=== PATIENT | female | born 1955 | race African-American/Black ===

== ENCOUNTER 2017-03-12 14:13 | Inpatient (IN) | payer MEDICARE, OTHER ==
[~2017-03-12] VITALS: Ht 167.6 cm; Wt 113.4 kg
[~2017-03-12 14:13] MED LIST: AMBIEN10 MG PO; ASPIRIN81 M1 PO; DULCOLAX5 MG PO; LOTREL 10-20 M1 EACH PO; METFORMIN HCL1000 MG PO; ROBAXIN-750750 MG PO; TYLENOL #31 TAB PO; VICODIN ES 7.51 EACH PO
[2017-03-12] MEDS ORDERED: HYDROmorphone 1mg/ml Carpuject IVP ONE (14:30)
[2017-03-12 14:58] LABS: APPEARANCE,URINE SLIGHTLY CLOUDY; BASOPHILS % (AUTO) 0.4 % (0.0-2.0); EOSINOPHILS % (AUTO) 1.7 % (0.0-3.0); KETONES,URINE NEGATIVE (NEGATIVE); LEUKOCYTE ESTERASE ,URINE 1+ (NEGATIVE); LYMPHOCYTES % (AUTO) 22.2 % (20.0-45.0); MEAN CORPUSCULAR HGB CONC 34.2 G/DL (32.0-36.0); MEAN CORPUSCULAR VOLUME 91 FL (80-99); MEAN PLATELET VOLUME 6.2 FL (6.5-10.1); MONOCYTES % (AUTO) 6.4 % (1.0-10.0); NEUTROPHILS % (AUTO) 69.3 % (45.0-75.0); NITRITE,URINE NEGATIVE (NEGATIVE); PH,URINE 5 (4.5-8.0); PLATELET COUNT 261 K/UL (150-450); PROTEIN,URINE 1+ (NEGATIVE); UROBILINOGEN,URINE NORMAL MG/DL (0.0-1.0); WHITE BLOOD COUNT 8.3 K/UL (4.8-10.8)
[2017-03-12 15:08] LABS: BACTERIA,URINE FEW /HPF; SQUAMOUS EPITHELIAL CELL,UR MODERATE /LPF (NONE/OCC)
--- NOTE | 2017-03-12 15:13 | Emergency Room Report ---
History of Present Illness General Chief Complaint: Abdominal Pain Source: Patient Present Illness HPI 61-year-old female presents to ED for evaluation. Patient brought in by ems c/ o abdominal pain times one week. She was seen by Dr. Maria's office and referred to ED for evaluation. Patient states pain is a 10 out of 10, sharp, right lower quadrant, nonradiating. Patient states she has history of multiple bowel obstructions and multiple surgeries. Denies fevers or chills. Denies chest pain. No other aggravating relieving factors. Denies any other associated symptom Allergies: Coded Allergies: KETOROLAC TROMETHAMINE (Unverified Allergy, Severe, Hives, 03/29/12) AMOXICILLIN (Verified Allergy, Unknown, 12/10/10) KETOROLAC (Verified Allergy, Unknown, 12/10/10) PENICILLINS (Verified Allergy, Unknown, 03/12/17) TRAMADOL (Verified Allergy, Unknown, 12/10/10) Patient History Past Medical History: HTN Past Surgical History: none Pertinent Family History: none Social History: Denies: smoking, alcohol use, drug use Now: No Immunizations: UTD Reviewed Nursing Documentation: PMH: Agreed, PSxH: Agreed Nursing Documentation-PMH Hx Cardiac Problems: Yes Hx Hypertension: Yes Hx Diabetes: Yes Hx Cancer: No Hx Gastrointestinal Problems: Yes Hx Neurological Problems: No Review of Systems All Other Systems: negative except mentioned in HPI Physical Exam Vital Signs Date Time Temp Pulse Resp B/P (MAP) Pulse Ox O2 Delivery O2 Flow Rate FiO2 03/12/17 14:10 98.1 84 16 140/74 98 Room Air Sp02 EP Interpretation: reviewed, normal General Appearance: alert, GCS 15, non-toxic, mild distress, obese Head: normocephalic, atraumatic Eyes: bilateral eye normal inspection, bilateral eye PERRL ENT: hearing grossly normal, normal pharynx, no angioedema, normal voice Neck: full range of motion, supple/symm/no masses Respiratory: chest non-tender, lungs clear, normal breath sounds, speaking full sentences Cardiovascular #1: regular rate, rhythm, no edema Cardiovascular #2: 2+ carotid (R), 2+ carotid (L), 2+ radial (R), 2+ radial (L) , 2+ dorsalis pedis (R), 2+ dorsalis pedis (L) Gastrointestinal: normal bowel sounds, soft, non-distended, no guarding, no rebound, tenderness - RLQ Rectal: deferred Genitourinary: normal inspection, no CVA tenderness Musculoskeletal: back normal, gait/station normal, normal range of motion, non- tender Neurologic: alert, oriented x3, responsive, motor strength/tone normal, sensory intact, speech normal Psychiatric: judgement/insight normal, memory normal, mood/affect normal, no suicidal/homicidal ideation Reflexes: 3+ bicep (R), 3+ bicep (L), 3+ tricep (R), 3+ tricep (L), 3+ knee (R) , 3+ knee (L) Skin: normal color, no rash, warm/dry, well hydrated Lymphatic: no adenopathy Medical Decision Making Diagnostic Impression: Primary Impression: Abdominal pain Qualified Codes: R10.9 - Unspecified abdominal pain Additional Impression: Ileus ER Course Hospital Course 61-year-old female presents to ED with abdominal pain. h/o SBO Differential diagnoses include: BPH, cystitis, pyelonephritis, kidney stone Clinical course Patient placed on stretcher. radiation monitor. After initial history and physical I ordered labs, IV fluids, UA, pain medication and CT scan Labs - no leukocytosis, Hb/Hct stable, electrolytes ok CT abdomen and pelvis - postsurgical changes, ileus patient continues to have pain. Case discussed with Dr. Torres and he agreed to accept the patient to his service for further care and support I feel this is a highly complex case requiring extensive working including EKG/ Rhythm strip, Xray/CT/US, Blood/urine lab work, repeat exams while in ED, and administration of strong opiates/narcotics for pain control, admission to hospital or close patient follow up. Diagnosis - abdominal pain, ileus Patient admitted to floor in serious condition Labs Test 03/12/17 14:34 White Blood Count 8.3 K/UL (4.8-10.8) Red Blood Count 4.40 M/UL (4.20-5.40) Hemoglobin 13.6 G/DL (12.0-16.0) Hematocrit 39.9 % (37.0-47.0) Mean Corpuscular Volume 91 FL (80-99) Mean Corpuscular Hemoglobin 31.0 PG (27.0-31.0) Mean Corpuscular Hemoglobin Concent 34.2 G/DL (32.0-36.0) Red Cell Distribution Width 12.0 % (11.6-14.8) Platelet Count 261 K/UL (150-450) Mean Platelet Volume 6.2 FL (6.5-10.1) Neutrophils (%) (Auto) 69.3 % (45.0-75.0) Lymphocytes (%) (Auto) 22.2 % (20.0-45.0) Monocytes (%) (Auto) 6.4 % (1.0-10.0) Eosinophils (%) (Auto) 1.7 % (0.0-3.0) Basophils (%) (Auto) 0.4 % (0.0-2.0) Urine Color Yellow Urine Appearance Slightly cloudy Urine pH 5 (4.5-8.0) Urine Specific [place] 1.020 (1.005-1.035) Urine Protein 1+ (NEGATIVE) Urine Glucose (UA) 4+ (NEGATIVE) Urine Ketones Negative (NEGATIVE) Urine Occult Blood 3+ (NEGATIVE) Urine Nitrite Negative (NEGATIVE) Urine Bilirubin Negative (NEGATIVE) Urine Urobilinogen Normal MG/DL (0.0-1.0) Urine Leukocyte Esterase 1+ (NEGATIVE) Urine RBC 2-4 /HPF (0 - 2) Urine WBC 2-4 /HPF (0 - 2) Urine Squamous Epithelial Cells Moderate /LPF (NONE/OCC) Urine Bacteria Few /HPF (NONE) Sodium Level 132 MMOL/L (136-145) Potassium Level 4.1 MMOL/L (3.5-5.1) Chloride Level 97 MMOL/L (98-107) Carbon Dioxide Level 24 MMOL/L (21-32) Anion Gap 11 (5-15) Blood Urea Nitrogen 19 mg/dL (7-18) Creatinine 1.0 MG/DL (0.55-1.30) Estimat Glomerular Filtration Rate > 60 mL/min (>60) Glucose Level 320 MG/DL (74-106) Calcium Level 9.9 MG/DL (8.5-10.1) Total Bilirubin 0.5 MG/DL (0.2-1.0) Aspartate Amino Transf (AST/SGOT) 14 U/L (15-37) Alanine Aminotransferase (ALT/SGPT) 17 U/L (12-78) Alkaline Phosphatase 115 U/L (46-116) Total Protein 8.7 G/DL (6.4-8.2) Albumin 4.0 G/DL (3.4-5.0) Globulin 4.7 g/dL Albumin/Globulin Ratio 0.9 (1.0-2.7) Lipase 105 U/L (73-393) CT/MRI/US Diagnostic Results CT/MRI/US Diagnostic Results : Imaging Test Ordered: CT A/P Impression ileus, postsurgical changes Last Vital Signs Date Time Temp Pulse Resp B/P (MAP) Pulse Ox O2 Delivery O2 Flow Rate FiO2 03/12/17 14:10 98.1 84 16 140/74 98 Room Air Status: improved Disposition: ADMITTED INPATIENT Condition: Serious Referrals: NOT CHOSEN LISA/,REFERRING (PCP) MAGALIE SWANSON M.D. Mar 12, 2017 15:13
[2017-03-12 15:14] LABS: ALANINE AMINOTRANSFERASE 17 U/L (12-78); ALBUMIN/GLOBULIN RATIO 0.9 (1.0-2.7); ANION GAP 11 (5-15); ASPARTATE AMINO TRANSFERASE 14 U/L (15-37); CALCIUM 9.9 MG/DL (8.5-10.1); CARBON DIOXIDE 24 MMOL/L (21-32); CHLORIDE 97 MMOL/L (98-107); GLOMERULAR FILTRATION RATE > 60 mL/min (>60); LIPASE 105 U/L (73-393); POTASSIUM 4.1 MMOL/L (3.5-5.1); SODIUM 132 MMOL/L (136-145); TOTAL PROTEIN 8.7 G/DL (6.4-8.2)
--- NOTE | 2017-03-12 16:25 | Diagnostic Imaging Report ---
Indication: Abdominal pain Technique: Continuous helical transaxial imaging of the abdomen and pelvis was obtained from the lung bases to the pubic symphysis during intravenous contrast administration. Coronal 2-D reformats were also obtained. Study obtained in a Siemens sensation [address] Total Dose length Product (DLP): [address] Dose Index Volume (CTDIvol): 19.75, 0.15 mGy Comparison: 03/29/12 Findings: Mild bronchiectasis demonstrated at the lung bases with some streaky reticular densities likely scarring. Small hiatal hernia is present. The study is limited by body habitus. Cholecystectomy clips are present. This was noted previously also. Previously demonstrated stone in the right kidney is no longer visualized. There is no evidence of hydronephrosis. There is evidence of partial right colon resection. Nature of this is unknown. Mild fluid-filled and air-filled distended loops of small bowel noted in the lower abdomen. Findings are nonspecific but likely enteritis or ileus. Please correlate clinically. There is no hydronephrosis. Aorta shows some mural calcification. Spleen and liver show no gross abnormalities. There is no free fluid or free air. Uterus is noted. Urinary bladder is unremarkable. Appendix is not seen. L4-5 disc shows narrowing and vacuum phenomena. Moderate endplate sclerosis and osteophyte formation and hypertrophied facets noted. Impression: Mild enteritis/ileus may be present as discussed above. Please correlate clinically. Postsurgical changes in the area of the cecum. Please correlate clinically. This finding was noted previously also. Probable appendectomy. Status post cholecystectomy. Mild atherosclerotic disease Chronic disease at both lung bases as described above. Lumbar spondylosis as described above. Limitation due to body habitus The CT scanner at [facility] is accredited by the [employer] and the scans are performed using dose optimization techniques as appropriate to a performed exam including Automatic Exposure control.
[2017-03-12] MEDS ORDERED: SOMA350 MG PO (16:44)
[2017-03-12] MEDS ORDERED: NORVASC10 MG ORAL (16:44)
[2017-03-12 16:56] VITALS: BP 181/75
[2017-03-12] MEDS ORDERED: HYDROmorphone 1 MG in NS 55 ML IV ONE (17:00)
[2017-03-12] MEDS ORDERED: Tubing IV Secondary IV ONE (17:13)
[2017-03-12] MEDS ORDERED: NS 55 ML IV ONE (17:13)
[2017-03-12] MEDS ORDERED: Mylanta II UD 30ml ORAL PRN (18:00)
[2017-03-12] MEDS ORDERED: Metoclopramide 10mg/2ml Inj IVP PRN (18:00)
[2017-03-12] MEDS ORDERED: LORazepam Inj 2mg/ml 1ml IV PRN (18:00)
[2017-03-12] MEDS ORDERED: Morphine Sulfate 2mg/ml Inj IVP PRN (18:00)
[2017-03-12] MEDS ORDERED: Nitroglycerin Subl 0.4mg tab SL PRN (18:00)
[2017-03-12 18:47] VITALS: BP 132/76
[2017-03-12] MEDS: D5 1/2NS 1,000 ML IV SCH (19:09)
[2017-03-12 20:00] VITALS: BP 126/76
[2017-03-12] MEDS: Heparin 5000 units/ml inj SUBQ SCH (21:00)
[2017-03-12] MEDS ORDERED: Miralax 17gm pkt ORAL PRN (21:00)
[2017-03-13] VITALS: BP 144/79
[2017-03-13 04:00] VITALS: BP 132/72
[2017-03-13] MEDS: NovoLOG Insulin Flexpen SUBQ SCH ×4 (06:09→20:29)
[2017-03-13 08:15] VITALS: BP 162/87
[2017-03-13 08:46] LABS: BASOPHILS % (AUTO) 0.2 % (0.0-2.0); EOSINOPHILS % (AUTO) 1.1 % (0.0-3.0); LYMPHOCYTES % (AUTO) 11.2 % (20.0-45.0); MEAN CORPUSCULAR HEMOGLOBIN 30.8 PG (27.0-31.0); MEAN CORPUSCULAR HGB CONC 33.5 G/DL (32.0-36.0); MEAN CORPUSCULAR VOLUME 92 FL (80-99); MEAN PLATELET VOLUME 6.9 FL (6.5-10.1); MONOCYTES % (AUTO) 4.2 % (1.0-10.0); NEUTROPHILS % (AUTO) 83.4 % (45.0-75.0); PLATELET COUNT 221 K/UL (150-450); RED BLOOD COUNT 4.01 M/UL (4.20-5.40); RED CELL DISTRIBUTION WIDTH 12.3 % (11.6-14.8); WHITE BLOOD COUNT 10.3 K/UL (4.8-10.8)
[2017-03-13] MEDS: Pantoprazole Inj IV SCH ×2 (09:00→10:10)
[2017-03-13] MEDS: Heparin 5000 units/ml inj SUBQ SCH (09:00)
[2017-03-13 09:37] LABS: ALANINE AMINOTRANSFERASE 15 U/L (12-78); ALBUMIN/GLOBULIN RATIO 0.8 (1.0-2.7); AMYLASE 102 U/L (25-115); ANION GAP 9 (5-15); ASPARTATE AMINO TRANSFERASE 12 U/L (15-37); CALCIUM 8.4 MG/DL (8.5-10.1); CARBON DIOXIDE 24 MMOL/L (21-32); CHLORIDE 101 MMOL/L (98-107); CREATININE 0.9 MG/DL (0.55-1.30); GLOMERULAR FILTRATION RATE > 60 mL/min (>60); LIPASE 96 U/L (73-393); POTASSIUM 3.6 MMOL/L (3.5-5.1); SODIUM 134 MMOL/L (136-145); TOTAL PROTEIN 7.6 G/DL (6.4-8.2)
[2017-03-13] MEDS: D5 1/2NS 1,000 ML IV SCH ×2 (10:10→21:10)
[2017-03-13 11:49] VITALS: BP 151/71
--- NOTE | 2017-03-13 15:24 | History and Physical ---
History of Present Illness General Date patient seen: Mar 12, 2017 Reason for Hospitalization: Abdominal Pain Present Illness HPI 61-year-old female with hx of cholecystectomy, DM, cholecystectomy presented to ED for evaluation of abdominal pain times one week. The pain is a 10 out of 10, sharp, right lower quadrant, nonradiating. Patient states she has history of multiple bowel obstructions and multiple surgeries. Denies fevers or chills. Denies chest pain. No other aggravating relieving factors. She is admitted for intractable Nausea and vomiting. Allergies: Coded Allergies: KETOROLAC TROMETHAMINE (Unverified Allergy, Severe, Hives, 03/29/12) AMOXICILLIN (Verified Allergy, Unknown, 12/10/10) KETOROLAC (Verified Allergy, Unknown, 12/10/10) PENICILLINS (Verified Allergy, Unknown, 03/12/17) Pork (Verified Allergy, Unknown, 03/12/17) TRAMADOL (Verified Allergy, Unknown, 12/10/10) Medication History Scheduled Amlodipine Besylate (Norvasc), 10 MG ORAL DAILY, (Reported) Amlodipine-Benazepril 10-20 Mg* (Lotrel 10-20 Mg Capsule*), 1 EACH PO BID, ( Reported) Aspirin (Aspirin), 81 MG PO DAILY, (Reported) Carisoprodol* (Soma*), 350 MG PO Q6H, (Reported) Metformin Hcl (Metformin Hcl), 1,000 MG PO DAILY, (Reported) Scheduled PRN Acetaminophen/Codeine 300MG/30MG* (Tylenol #3*), 1 TAB PO Q4H PRN, (Reported) Bisacodyl (Dulcolax), 5 MG PO DAILY PRN, (Reported) Hydrocodone/Acetaminophen 7.5-750 (Vicodin Es 7.5-750), 1 TAB PO Q4HR PRN, ( Reported) Methocarbamol* (Robaxin-750*), 750 MG PO Q4HR PRN, (Reported) Zolpidem Tartrate* (Ambien*), 20 MG PO HS PRN, (Reported) Patient History Healthcare decision maker N Resuscitation status Full Code Advanced Directive on File No Past Medical/Surgical History Past Medical/Surgical History: (1) CAD (coronary artery disease) (2) Diabetes mellitus Review of Systems All Other Systems: negative except mentioned in HPI Physical Exam General Appearance: WD/WN Lines, tubes and drains: peripheral HEENT: normocephalic, atraumatic Neck: non-tender, normal alignment Respiratory/Chest: chest wall non-tender, lungs clear Breasts: no masses Cardiovascular/Chest: normal peripheral pulses Abdomen: normal bowel sounds, non tender Genitourinary/Rectal: normal genital exam Extremities: normal range of motion, non-tender Skin Exam: normal pigmentation 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 Last 24 Hour Vital Signs Date Time Temp Pulse Resp B/P (MAP) Pulse Ox O2 Delivery O2 Flow Rate FiO2 03/13/17 11:49 97.5 84 19 151/71 92 Room Air 03/13/17 08:15 97.3 82 20 162/87 96 Room Air 03/13/17 04:00 97.2 72 20 132/72 96 Room Air 03/13/17 00:00 98.2 78 21 144/79 97 Room Air 03/12/17 20:00 98.2 66 20 126/76 97 Room Air 03/12/17 18:47 98.1 83 18 132/76 98 Room Air 03/12/17 17:48 98.0 76 16 181/75 98 Room Air 03/12/17 17:45 98.1 03/12/17 17:15 181/75 03/12/17 16:56 76 16 181/75 98 Room Air Laboratory Tests Test 03/13/17 08:15 White Blood Count 10.3 K/UL (4.8-10.8) Red Blood Count 4.01 M/UL (4.20-5.40) L Hemoglobin 12.3 G/DL (12.0-16.0) Hematocrit 36.9 % (37.0-47.0) L Mean Corpuscular Volume 92 FL (80-99) Mean Corpuscular Hemoglobin 30.8 PG (27.0-31.0) Mean Corpuscular Hemoglobin Concent 33.5 G/DL (32.0-36.0) Red Cell Distribution Width 12.3 % (11.6-14.8) Platelet Count 221 K/UL (150-450) Mean Platelet Volume 6.9 FL (6.5-10.1) Neutrophils (%) (Auto) 83.4 % (45.0-75.0) H Lymphocytes (%) (Auto) 11.2 % (20.0-45.0) L Monocytes (%) (Auto) 4.2 % (1.0-10.0) Eosinophils (%) (Auto) 1.1 % (0.0-3.0) Basophils (%) (Auto) 0.2 % (0.0-2.0) Activated Partial Thromboplast Time 33 SEC (23-33) Sodium Level 134 MMOL/L (136-145) L Potassium Level 3.6 MMOL/L (3.5-5.1) Chloride Level 101 MMOL/L (98-107) Carbon Dioxide Level 24 MMOL/L (21-32) Anion Gap 9 (5-15) Blood Urea Nitrogen 13 mg/dL (7-18) Creatinine 0.9 MG/DL (0.55-1.30) Estimat Glomerular Filtration Rate > 60 mL/min (>60) Glucose Level 307 MG/DL (74-106) H Hemoglobin A1c 10.4 % (4.5-6.5) H Calcium Level 8.4 MG/DL (8.5-10.1) L Total Bilirubin 0.4 MG/DL (0.2-1.0) Aspartate Amino Transf (AST/SGOT) 12 U/L (15-37) L Alanine Aminotransferase (ALT/SGPT) 15 U/L (12-78) Alkaline Phosphatase 89 U/L (46-116) Total Protein 7.6 G/DL (6.4-8.2) Albumin 3.4 G/DL (3.4-5.0) Globulin 4.2 g/dL Albumin/Globulin Ratio 0.8 (1.0-2.7) L Amylase Level 102 U/L (25-115) Lipase 96 U/L (73-393) Height (Feet): 5 Height (Inches): 6.00 Weight (Pounds): 250 Medications Current Medications Medications (Trade) Dose Ordered Sig/Cherelle Route PRN Reason Start Time Stop Time Status Last Admin Dose Admin Acetaminophen (Tylenol) 650 mg Q4H PRN ORAL T>100.5 03/12/17 18:00 04/11/17 17:59 Al Hydroxide/Mg Hydroxide (Mylanta II) 30 ml Q6H PRN ORAL dyspepsia 03/12/17 18:00 04/11/17 17:59 Dextrose (Dextrose 50%) STAT PRN IV Hypoglycemia 03/12/17 18:00 04/11/17 17:59 Dextrose (Dextrose 50%) STAT PRN IV Hypoglycemia 03/12/17 21:45 04/11/17 21:44 Dextrose/Sodium Chloride 1,000 ml @ 75 mls/hr [id number] IV 03/12/17 18:30 04/11/17 18:29 03/13/17 10:10 Diphenhydramine HCl (Benadryl) 25 mg Q6H PRN ORAL Itching/Pruritis 03/12/17 18:00 04/11/17 17:59 Heparin Sodium (Porcine) (Heparin 5000 units/ml) 5,000 units EVERY 12 HOURS SUBQ 03/12/17 21:00 04/11/17 20:59 Hydromorphone HCl (Dilaudid) 2 mg Q4H PRN IVP Severe Pain (Pain Scale 7-10) 03/12/17 21:30 03/19/17 21:29 03/13/17 14:39 Insulin Aspart (NovoLOG) before meals BEFORE MEALS AND HS SUBQ 03/13/17 06:30 04/12/17 06:29 Lorazepam (Ativan 2mg/ml 1ml) 1 mg Q4H PRN IV agitation 03/12/17 18:00 03/19/17 17:59 Metoclopramide HCl (Reglan) 10 mg Q6H PRN IVP SEVERE NAUSEA 03/12/17 18:00 04/11/17 17:59 Nitroglycerin (Ntg) 0.4 mg Q5M X 3 DOSES PRN SL Prn Chest Pain 03/12/17 18:00 04/11/17 17:59 Ondansetron HCl (Zofran) 4 mg Q6H PRN IVP Nausea & Vomiting 03/12/17 18:00 04/11/17 17:59 Pantoprazole (Protonix) 40 mg DAILY IV 03/13/17 09:00 04/12/17 08:59 Polyethylene Glycol (Miralax) 17 gm HSPRN PRN ORAL Constipation 03/12/17 21:00 04/11/17 20:59 Temazepam (Restoril) 15 mg HSPRN PRN ORAL Insomnia 03/12/17 21:00 03/19/17 20:59 03/12/17 23:45 Assessment/Plan Problem List: (1) Ileus ICD Codes: K56.7 - Ileus, unspecified SNOMED: 080246460 (2) Abdominal pain ICD Codes: R10.9 - Unspecified abdominal pain SNOMED: 34347879 Qualifiers: Qualified Codes: R10.9 - Unspecified abdominal pain (3) Diabetes mellitus ICD Codes: E11.9 - Type 2 diabetes mellitus without complications SNOMED: 04060512 (4) CAD (coronary artery disease) ICD Codes: I25.10 - Atherosclerotic heart disease of [place] coronary artery without angina pectoris SNOMED: 66063245 Assessment/Plan NPO IV fluids surgical and GI evaluation check electrolytes sliding scale dvt prophylaxis LEONORA GIFFORD Mar 13, 2017 15:24
[2017-03-13 15:27] VITALS: BP 132/60
--- NOTE | 2017-03-13 15:51 | Pulmonology Progress Note ---
Assessment/Plan Problems: (1) Hemoptysis (2) Ileus (3) Abdominal pain (4) Diabetes mellitus (5) CAD (coronary artery disease) Assessment/Plan CT chest GI/surgery evaluaiton NPO check electrolytes Subjective ROS Limited/Unobtainable: No Interval Events: c/o coughing up blood Allergies: Coded Allergies: KETOROLAC TROMETHAMINE (Unverified Allergy, Severe, Hives, 03/29/12) AMOXICILLIN (Verified Allergy, Unknown, 12/10/10) KETOROLAC (Verified Allergy, Unknown, 12/10/10) PENICILLINS (Verified Allergy, Unknown, 03/12/17) Pork (Verified Allergy, Unknown, 03/12/17) TRAMADOL (Verified Allergy, Unknown, 12/10/10) Objective Last 24 Hour Vital Signs Date Time Temp Pulse Resp B/P (MAP) Pulse Ox O2 Delivery O2 Flow Rate FiO2 03/13/17 15:27 97.8 73 20 132/60 95 Room Air 03/13/17 15:09 97.5 03/13/17 11:49 97.5 84 19 151/71 92 Room Air 03/13/17 08:15 97.3 82 20 162/87 96 Room Air 03/13/17 04:00 97.2 72 20 132/72 96 Room Air 03/13/17 00:00 98.2 78 21 144/79 97 Room Air 03/12/17 20:00 98.2 66 20 126/76 97 Room Air 03/12/17 18:47 98.1 83 18 132/76 98 Room Air 03/12/17 17:48 98.0 76 16 181/75 98 Room Air 03/12/17 17:45 98.1 03/12/17 17:15 181/75 03/12/17 16:56 76 16 181/75 98 Room Air General Appearance: WD/WN HEENT: normocephalic, atraumatic Respiratory/Chest: chest wall non-tender, lungs clear Breasts: no masses Cardiovascular: normal peripheral pulses, normal rate Abdomen: normal bowel sounds, soft, non tender Genitourinary: normal external genitalia Extremities: no cyanosis Skin: no rash, no ulcers 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 Laboratory Tests 03/13/17 08:15: White Blood Count 10.3, Red Blood Count 4.01L, Hemoglobin 12.3, Hematocrit 36.9L , Mean Corpuscular Volume 92, Mean Corpuscular Hemoglobin 30.8, Mean Corpuscular Hemoglobin Concent 33.5, Red Cell Distribution Width 12.3, Platelet Count 221, Mean Platelet Volume 6.9, Neutrophils (%) (Auto) 83.4H, Lymphocytes ( %) (Auto) 11.2L, Monocytes (%) (Auto) 4.2, Eosinophils (%) (Auto) 1.1, Basophils (%) (Auto) 0.2, Activated Partial Thromboplast Time 33, Sodium Level 134L, Potassium Level 3.6, Chloride Level 101, Carbon Dioxide Level 24, Anion Gap 9, Blood Urea Nitrogen 13, Creatinine 0.9, Estimat Glomerular Filtration Rate > 60, Glucose Level 307H, Hemoglobin A1c 10.4H, Calcium Level 8.4L, Total Bilirubin 0.4, Aspartate Amino Transf (AST/SGOT) 12L, Alanine Aminotransferase ( ALT/SGPT) 15, Alkaline Phosphatase 89, Total Protein 7.6, Albumin 3.4, Globulin 4.2, Albumin/Globulin Ratio 0.8L, Amylase Level 102, Lipase 96 Current Medications Medications (Trade) Dose Ordered Sig/Cherelle Route PRN Reason Start Time Stop Time Status Last Admin Dose Admin Acetaminophen (Tylenol) 650 mg Q4H PRN ORAL T>100.5 03/12/17 18:00 04/11/17 17:59 Al Hydroxide/Mg Hydroxide (Mylanta II) 30 ml Q6H PRN ORAL dyspepsia 03/12/17 18:00 04/11/17 17:59 Dextrose (Dextrose 50%) STAT PRN IV Hypoglycemia 03/12/17 18:00 04/11/17 17:59 Dextrose (Dextrose 50%) STAT PRN IV Hypoglycemia 03/12/17 21:45 04/11/17 21:44 Dextrose/Sodium Chloride 1,000 ml @ 75 mls/hr [id number] IV 03/12/17 18:30 04/11/17 18:29 03/13/17 10:10 Diphenhydramine HCl (Benadryl) 25 mg Q6H PRN ORAL Itching/Pruritis 03/12/17 18:00 04/11/17 17:59 Heparin Sodium (Porcine) (Heparin 5000 units/ml) 5,000 units EVERY 12 HOURS SUBQ 03/12/17 21:00 04/11/17 20:59 Hydromorphone HCl (Dilaudid) 2 mg Q4H PRN IVP Severe Pain (Pain Scale 7-10) 03/12/17 21:30 03/19/17 21:29 03/13/17 14:39 Insulin Aspart (NovoLOG) before meals BEFORE MEALS AND HS SUBQ 03/13/17 06:30 04/12/17 06:29 Lorazepam (Ativan 2mg/ml 1ml) 1 mg Q4H PRN IV agitation 03/12/17 18:00 03/19/17 17:59 Metoclopramide HCl (Reglan) 10 mg Q6H PRN IVP SEVERE NAUSEA 03/12/17 18:00 04/11/17 17:59 Nitroglycerin (Ntg) 0.4 mg Q5M X 3 DOSES PRN SL Prn Chest Pain 03/12/17 18:00 04/11/17 17:59 Ondansetron HCl (Zofran) 4 mg Q6H PRN IVP Nausea & Vomiting 03/12/17 18:00 04/11/17 17:59 Pantoprazole (Protonix) 40 mg DAILY IV 03/13/17 09:00 04/12/17 08:59 Polyethylene Glycol (Miralax) 17 gm HSPRN PRN ORAL Constipation 03/12/17 21:00 04/11/17 20:59 Temazepam (Restoril) 15 mg HSPRN PRN ORAL Insomnia 03/12/17 21:00 03/19/17 20:59 03/12/17 23:45 LEONORA GIFFORD Mar 13, 2017 15:51
--- NOTE | 2017-03-13 15:51 | Consultation ---
History of Present Illness General Date patient seen: Mar 13, 2017 Chief Complaint: Abdominal Pain Reason for Consultation: abdominal pain x 1 week Present Illness HPI 61F with multiple medical comorbidities as noted below presents with abdominal pain x 1 week. As per patient, she has had abdominal pain intermittently for years now. a week ago she noted some vague RLQ abdominal pain and has had it since. describes it as cramping persistent RLQ pain without radiation. no n/v/ f/c. does have coughing and believes there is blood in sputum. able to tolerating diet without difficulty. passing flatus and having normal BM's. good UOP. Allergies: Coded Allergies: KETOROLAC TROMETHAMINE (Unverified Allergy, Severe, Hives, 03/29/12) AMOXICILLIN (Verified Allergy, Unknown, 12/10/10) KETOROLAC (Verified Allergy, Unknown, 12/10/10) PENICILLINS (Verified Allergy, Unknown, 03/12/17) Pork (Verified Allergy, Unknown, 03/12/17) TRAMADOL (Verified Allergy, Unknown, 12/10/10) Medication History Scheduled Amlodipine Besylate (Norvasc), 10 MG ORAL DAILY, (Reported) Amlodipine-Benazepril 10-20 Mg* (Lotrel 10-20 Mg Capsule*), 1 EACH PO BID, ( Reported) Aspirin (Aspirin), 81 MG PO DAILY, (Reported) Carisoprodol* (Soma*), 350 MG PO Q6H, (Reported) Metformin Hcl (Metformin Hcl), 1,000 MG PO DAILY, (Reported) Scheduled PRN Acetaminophen/Codeine 300MG/30MG* (Tylenol #3*), 1 TAB PO Q4H PRN, (Reported) Bisacodyl (Dulcolax), 5 MG PO DAILY PRN, (Reported) Hydrocodone/Acetaminophen 7.5-750 (Vicodin Es 7.5-750), 1 TAB PO Q4HR PRN, ( Reported) Methocarbamol* (Robaxin-750*), 750 MG PO Q4HR PRN, (Reported) Zolpidem Tartrate* (Ambien*), 20 MG PO HS PRN, (Reported) Patient History History Provided By: Patient Healthcare decision maker N Resuscitation status Full Code Advanced Directive on File No Past Medical/Surgical History Past Medical/Surgical History: (1) Hx of cholecystectomy (2) Ileus (3) Diabetes mellitus (4) CAD (coronary artery disease) (5) Abdominal pain Review of Systems All Other Systems: negative except mentioned in HPI Physical Exam General Appearance: no apparent distress Lines, tubes and drains: peripheral HEENT: PERRL Neck: normal inspection Respiratory/Chest: normal breath sounds Cardiovascular/Chest: normal peripheral pulses Abdomen: normal bowel sounds, non tender, soft, no organomegaly, no mass, other - obese, mild pain in her right lower pannus, no signs of infection. Extremities: normal range of motion Skin Exam: normal pigmentation Neurologic: alert, oriented x 3, responsive Last 24 Hour Vital Signs Date Time Temp Pulse Resp B/P (MAP) Pulse Ox O2 Delivery O2 Flow Rate FiO2 03/13/17 15:27 97.8 73 20 132/60 95 Room Air 03/13/17 15:09 97.5 03/13/17 11:49 97.5 84 19 151/71 92 Room Air 03/13/17 08:15 97.3 82 20 162/87 96 Room Air 03/13/17 04:00 97.2 72 20 132/72 96 Room Air 03/13/17 00:00 98.2 78 21 144/79 97 Room Air 03/12/17 20:00 98.2 66 20 126/76 97 Room Air 03/12/17 18:47 98.1 83 18 132/76 98 Room Air 03/12/17 17:48 98.0 76 16 181/75 98 Room Air 03/12/17 17:45 98.1 03/12/17 17:15 181/75 03/12/17 16:56 76 16 181/75 98 Room Air Laboratory Tests Test 03/13/17 08:15 White Blood Count 10.3 K/UL (4.8-10.8) Red Blood Count 4.01 M/UL (4.20-5.40) L Hemoglobin 12.3 G/DL (12.0-16.0) Hematocrit 36.9 % (37.0-47.0) L Mean Corpuscular Volume 92 FL (80-99) Mean Corpuscular Hemoglobin 30.8 PG (27.0-31.0) Mean Corpuscular Hemoglobin Concent 33.5 G/DL (32.0-36.0) Red Cell Distribution Width 12.3 % (11.6-14.8) Platelet Count 221 K/UL (150-450) Mean Platelet Volume 6.9 FL (6.5-10.1) Neutrophils (%) (Auto) 83.4 % (45.0-75.0) H Lymphocytes (%) (Auto) 11.2 % (20.0-45.0) L Monocytes (%) (Auto) 4.2 % (1.0-10.0) Eosinophils (%) (Auto) 1.1 % (0.0-3.0) Basophils (%) (Auto) 0.2 % (0.0-2.0) Activated Partial Thromboplast Time 33 SEC (23-33) Sodium Level 134 MMOL/L (136-145) L Potassium Level 3.6 MMOL/L (3.5-5.1) Chloride Level 101 MMOL/L (98-107) Carbon Dioxide Level 24 MMOL/L (21-32) Anion Gap 9 (5-15) Blood Urea Nitrogen 13 mg/dL (7-18) Creatinine 0.9 MG/DL (0.55-1.30) Estimat Glomerular Filtration Rate > 60 mL/min (>60) Glucose Level 307 MG/DL (74-106) H Hemoglobin A1c 10.4 % (4.5-6.5) H Calcium Level 8.4 MG/DL (8.5-10.1) L Total Bilirubin 0.4 MG/DL (0.2-1.0) Aspartate Amino Transf (AST/SGOT) 12 U/L (15-37) L Alanine Aminotransferase (ALT/SGPT) 15 U/L (12-78) Alkaline Phosphatase 89 U/L (46-116) Total Protein 7.6 G/DL (6.4-8.2) Albumin 3.4 G/DL (3.4-5.0) Globulin 4.2 g/dL Albumin/Globulin Ratio 0.8 (1.0-2.7) L Amylase Level 102 U/L (25-115) Lipase 96 U/L (73-393) Height (Feet): 5 Height (Inches): 6.00 Weight (Pounds): 250 Medications Current Medications Medications (Trade) Dose Ordered Sig/Cherelle Route PRN Reason Start Time Stop Time Status Last Admin Dose Admin Acetaminophen (Tylenol) 650 mg Q4H PRN ORAL T>100.5 03/12/17 18:00 04/11/17 17:59 Al Hydroxide/Mg Hydroxide (Mylanta II) 30 ml Q6H PRN ORAL dyspepsia 03/12/17 18:00 04/11/17 17:59 Dextrose (Dextrose 50%) STAT PRN IV Hypoglycemia 03/12/17 18:00 04/11/17 17:59 Dextrose (Dextrose 50%) STAT PRN IV Hypoglycemia 03/12/17 21:45 04/11/17 21:44 Dextrose/Sodium Chloride 1,000 ml @ 75 mls/hr [id number] IV 03/12/17 18:30 04/11/17 18:29 03/13/17 10:10 Diphenhydramine HCl (Benadryl) 25 mg Q6H PRN ORAL Itching/Pruritis 03/12/17 18:00 04/11/17 17:59 Heparin Sodium (Porcine) (Heparin 5000 units/ml) 5,000 units EVERY 12 HOURS SUBQ 03/12/17 21:00 04/11/17 20:59 Hydromorphone HCl (Dilaudid) 2 mg Q4H PRN IVP Severe Pain (Pain Scale 7-10) 03/12/17 21:30 03/19/17 21:29 03/13/17 14:39 Insulin Aspart (NovoLOG) before meals BEFORE MEALS AND HS SUBQ 03/13/17 06:30 04/12/17 06:29 Lorazepam (Ativan 2mg/ml 1ml) 1 mg Q4H PRN IV agitation 03/12/17 18:00 03/19/17 17:59 Metoclopramide HCl (Reglan) 10 mg Q6H PRN IVP SEVERE NAUSEA 03/12/17 18:00 04/11/17 17:59 Nitroglycerin (Ntg) 0.4 mg Q5M X 3 DOSES PRN SL Prn Chest Pain 03/12/17 18:00 04/11/17 17:59 Ondansetron HCl (Zofran) 4 mg Q6H PRN IVP Nausea & Vomiting 03/12/17 18:00 04/11/17 17:59 Pantoprazole (Protonix) 40 mg DAILY IV 03/13/17 09:00 04/12/17 08:59 Polyethylene Glycol (Miralax) 17 gm HSPRN PRN ORAL Constipation 03/12/17 21:00 04/11/17 20:59 Temazepam (Restoril) 15 mg HSPRN PRN ORAL Insomnia 03/12/17 21:00 03/19/17 20:59 03/12/17 23:45 Assessment/Plan Problem List: (1) Abdominal pain Assessment & Plan: 61F with multiple comorbidities and history presents with abdominal pain. tolerating diet, normal BM's and flatus, pain mainly in RLQ and around her pannus. Cramping feeling likely enteritis. Afebrile, HD stable, exam stable, labs normal. CT reviewed and it seems as she has had multiple prior abdominal surgeries. had cholecystectomy, and prior bowel surgery. seems that she had partial right hemicolectomy and does not have apparent appendix. likely enteritis. -bowel rest -GI eval -IV fluids -will follow and monitor exam. ICD Codes: R10.9 - Unspecified abdominal pain SNOMED: [id number] Qualifiers: Qualified Codes: R10.9 - Unspecified abdominal pain Status: stable LeanderJignesh hubbard Mar 13, 2017 15:51
[2017-03-13] MEDS ORDERED: Promethazine/Codeine 5ml UD ORAL PRN (16:00)
--- NOTE | 2017-03-13 16:24 | Diagnostic Imaging Report ---
Indication: Lower abdominal pain, abnormal liver function tests Technique: Ponce-scale and duplex images of the upper abdomen were obtained Comparison: None Findings: Gallbladder is surgically absent. Common bile duct measures 10 mm in diameter. No intrahepatic biliary ductal dilatation. Liver demonstrates equivocally borderline diffusely increased echogenicity, consistent with diffuse hepatocellular disease, most likely fatty change. Portal vein and hepatic veins are patent. Pancreas is unremarkable. Spleen is unremarkable. Left kidney measures 12.1 cm in length. Right kidney measures 11 cm length. Both kidneys demonstrate normal echogenicity. There is no hydronephrosis. No focal abnormality . Abdominal aorta is partially obscured by bowel gas, visualized portions are non-aneurysmal . Impression: Surgically absent gallbladder Mildly dilated common bile duct. Likely related to age and postcholecystectomy state, especially given the absence of downstream obstructive lesion on previous days abdominal CT scan and similar caliber on a 2012 CT scan. However, occult downstream obstruction not completely excludable. Correlate with clinical findings and liver function tests, consider nuclear medicine hepatobiliary scan for further evaluation if clinically indicated Increased hepatic echogenicity. Probably artifactual, as no fatty change is seen on recent CT Note inability to visualize portions of the distal abdominal aorta
--- NOTE | 2017-03-13 16:24 | GI Initial Consult Note ---
History of Present Illness General Date patient seen: Mar 13, 2017 Time patient seen: 15:00 Reason for Hospitalization: Abdominal Pain Referring physician: LEONORA GIFFORD Reason for Consultation: abdominal pain x 1 week Present Illness HPI 61-year-old female presents to ED for evaluation. Patient brought in by ems c/ o abdominal pain times one week. She was seen by Dr. Maria's office and referred to ED for evaluation. Patient states pain is a 10 out of 10, sharp, right lower quadrant, nonradiating. Patient states she has history of multiple bowel obstructions and multiple surgeries. Denies fevers or chills. Denies chest pain. No other aggravating relieving factors. Denies any other associated symptom GI consulted for abdominal pain. HPI as noted above. Pt seen on floor, awake A&Ox4 NAD with no active s/sx of N/V/D. Abdominal soft, nontender, possible hernia in the RLQ. Patient presents today with noted ileus on CT AP. History of DM with admission glucose of 320, uncontrolled per patient. Unknown history of endoscopic/colonoscopies. Home Meds Reported Medications Amlodipine Besylate (Norvasc) 10 Mg Tablet, 10 MG ORAL DAILY, TAB 03/12/17 Carisoprodol* (SOMA*) 350 Mg Tablet, 350 MG PO Q6H, TAB 03/12/17 Amlodipine-Benazepril 10-20 Mg* (LOTREL 10-20 MG CAPSULE*) 1 Each Capsule, 1 EACH PO BID 03/30/12 Bisacodyl (DULCOLAX) 5 Mg Tablet.dr, 5 MG PO DAILY Y 03/30/12 Acetaminophen/Codeine 300MG/30MG* (TYLENOL #3*) 1 Tab Tab, 1 TAB PO Q4H Y, #15 TAB Take 1 tablet by mouth every 4 hours as needed for pain. 03/30/12 Hydrocodone/Acetaminophen 7.5-750 (VICODIN ES 7.5-750) 1 Each Tablet, 1 TAB PO Q4HR Y, #10 TAB Take 1 tablet by mouth every eight hours as needed for pain. 03/30/12 Zolpidem Tartrate* (AMBIEN*) 10 Mg Tablet, 20 MG PO HS Y 03/30/12 Aspirin (ASPIRIN) 81 Mg Tablet, 81 MG PO DAILY 03/30/12 Metformin Hcl (METFORMIN HCL) 1,000 Mg Tablet, 1000 MG PO DAILY 03/30/12 Methocarbamol* (ROBAXIN-750*) 750 Mg Tablet, 750 MG PO Q4HR Y, #28 TAB Take 1 tablet by mouth 4 times a day 03/30/12 Med list reviewed/reconciled: Yes Allergies: Coded Allergies: KETOROLAC TROMETHAMINE (Unverified Allergy, Severe, Hives, 03/29/12) AMOXICILLIN (Verified Allergy, Unknown, 12/10/10) KETOROLAC (Verified Allergy, Unknown, 12/10/10) PENICILLINS (Verified Allergy, Unknown, 03/12/17) Pork (Verified Allergy, Unknown, 03/12/17) TRAMADOL (Verified Allergy, Unknown, 12/10/10) Patient History History Provided By: Patient, Medical Record PMH Narrative Past Medical History: HTN Past Surgical History: none Pertinent Family History: none Social History: Denies: smoking, alcohol use, drug use Now: No Immunizations: UTD Reviewed Nursing Documentation: PMH: Agreed, PSxH: Agreed Nursing Documentation-PMH Hx Cardiac Problems: Yes Hx Hypertension: Yes Hx Diabetes: Yes Hx Cancer: No Hx Gastrointestinal Problems: Yes Hx Neurological Problems: No Review of Systems All Other Systems: negative except mentioned in HPI Physical Exam Vital Signs Date Time Temp Pulse Resp B/P (MAP) Pulse Ox O2 Delivery O2 Flow Rate FiO2 03/12/17 14:10 98.1 84 16 140/74 98 Room Air Sp02 EP Interpretation: reviewed Labs Laboratory Tests Test 03/13/17 08:15 White Blood Count 10.3 K/UL (4.8-10.8) Red Blood Count 4.01 M/UL (4.20-5.40) L Hemoglobin 12.3 G/DL (12.0-16.0) Hematocrit 36.9 % (37.0-47.0) L Mean Corpuscular Volume 92 FL (80-99) Mean Corpuscular Hemoglobin 30.8 PG (27.0-31.0) Mean Corpuscular Hemoglobin Concent 33.5 G/DL (32.0-36.0) Red Cell Distribution Width 12.3 % (11.6-14.8) Platelet Count 221 K/UL (150-450) Mean Platelet Volume 6.9 FL (6.5-10.1) Neutrophils (%) (Auto) 83.4 % (45.0-75.0) H Lymphocytes (%) (Auto) 11.2 % (20.0-45.0) L Monocytes (%) (Auto) 4.2 % (1.0-10.0) Eosinophils (%) (Auto) 1.1 % (0.0-3.0) Basophils (%) (Auto) 0.2 % (0.0-2.0) Activated Partial Thromboplast Time 33 SEC (23-33) Sodium Level 134 MMOL/L (136-145) L Potassium Level 3.6 MMOL/L (3.5-5.1) Chloride Level 101 MMOL/L (98-107) Carbon Dioxide Level 24 MMOL/L (21-32) Anion Gap 9 (5-15) Blood Urea Nitrogen 13 mg/dL (7-18) Creatinine 0.9 MG/DL (0.55-1.30) Estimat Glomerular Filtration Rate > 60 mL/min (>60) Glucose Level 307 MG/DL (74-106) H Hemoglobin A1c 10.4 % (4.5-6.5) H Calcium Level 8.4 MG/DL (8.5-10.1) L Total Bilirubin 0.4 MG/DL (0.2-1.0) Aspartate Amino Transf (AST/SGOT) 12 U/L (15-37) L Alanine Aminotransferase (ALT/SGPT) 15 U/L (12-78) Alkaline Phosphatase 89 U/L (46-116) Total Protein 7.6 G/DL (6.4-8.2) Albumin 3.4 G/DL (3.4-5.0) Globulin 4.2 g/dL Albumin/Globulin Ratio 0.8 (1.0-2.7) L Amylase Level 102 U/L (25-115) Lipase 96 U/L (73-393) General Appearance: normal inspection, well appearing, no apparent distress, alert, obese Head: normocephalic EENT: PERRL/EOMI, normal ENT inspection Neck: supple Respiratory: normal breath sounds, no respiratory distress Cardiovascular: normal rate Gastrointestinal: normal inspection, non tender, soft Rectal: deferred Musculoskeletal: back normal Neurologic: normal inspection, alert, oriented x3, responsive Psychiatric: normal inspection, judgement/insight normal, memory normal Skin: normal inspection, normal color, no rash, warm/dry Lymphatic: normal inspection, no adenopathy Current Medications Current Medications Medications (Trade) Dose Ordered Sig/Cherelle Route PRN Reason Start Time Stop Time Status Last Admin Dose Admin Acetaminophen (Tylenol) 650 mg Q4H PRN ORAL T>100.5 03/12/17 18:00 04/11/17 17:59 Al Hydroxide/Mg Hydroxide (Mylanta II) 30 ml Q6H PRN ORAL dyspepsia 03/12/17 18:00 04/11/17 17:59 Dextrose (Dextrose 50%) STAT PRN IV Hypoglycemia 03/12/17 18:00 04/11/17 17:59 Dextrose (Dextrose 50%) STAT PRN IV Hypoglycemia 03/12/17 21:45 04/11/17 21:44 Dextrose/Sodium Chloride 1,000 ml @ 75 mls/hr [id number] IV 03/12/17 18:30 04/11/17 18:29 03/13/17 10:10 Diphenhydramine HCl (Benadryl) 25 mg Q6H PRN ORAL Itching/Pruritis 03/12/17 18:00 04/11/17 17:59 Hydromorphone HCl (Dilaudid) 2 mg Q4H PRN IVP Severe Pain (Pain Scale 7-10) 03/12/17 21:30 03/19/17 21:29 03/13/17 10:10 Insulin Aspart (NovoLOG) before meals BEFORE MEALS AND HS SUBQ 03/13/17 06:30 04/12/17 06:29 Lorazepam (Ativan 2mg/ml 1ml) 1 mg Q4H PRN IV agitation 03/12/17 18:00 03/19/17 17:59 Metoclopramide HCl (Reglan) 10 mg Q6H PRN IVP SEVERE NAUSEA 03/12/17 18:00 04/11/17 17:59 Nitroglycerin (Ntg) 0.4 mg Q5M X 3 DOSES PRN SL Prn Chest Pain 03/12/17 18:00 04/11/17 17:59 Ondansetron HCl (Zofran) 4 mg Q6H PRN IVP Nausea & Vomiting 03/12/17 18:00 04/11/17 17:59 Pantoprazole (Protonix) 40 mg DAILY IV 03/13/17 09:00 04/12/17 08:59 Polyethylene Glycol (Miralax) 17 gm HSPRN PRN ORAL Constipation 03/12/17 21:00 04/11/17 20:59 Promethazine HCl/ Codeine (Phenergan with Codeine) 5 ml Q4H PRN ORAL For Cough 03/13/17 16:00 04/12/17 15:59 Temazepam (Restoril) 15 mg HSPRN PRN ORAL Insomnia 03/12/17 21:00 03/19/17 20:59 03/12/17 23:45 GI: Plan Problems: (1) Abdominal pain (2) Diabetes mellitus (3) Ileus (4) Hx of cholecystectomy (5) Dehydration (6) Electrolyte imbalance Plan CT AP reviewed >> mild enteritis/ilues flatus + DM management ileus management CLD trial pain mgmt IV hydration + electrolyte replacement bowel decompression if necessary repeat imaging studies prn zofran prn, reglan for persistent vomiting fu labs outpatient GI procedures Discussed with Dr. Kaur. Thank you for this patient referral, we will follow. Liz Chen N.P. Mar 13, 2017 16:24
[2017-03-13 20:00] VITALS: BP 129/57
[2017-03-13] MEDS: Metoclopramide 10mg/2ml Inj IVP SCH (20:14)
--- NOTE | 2017-03-13 23:47 | Consultation ---
History of Present Illness General Chief Complaint: Abdominal Pain Referring physician: LEONORA GIFFORD Reason for Consultation: abdominal pain x 1 week Present Illness HPI 61F with multiple medical comorbidities as noted below presents with abdominal pain x 1 week. the pt has anxiety, pain and insomnia. Allergies: Coded Allergies: KETOROLAC TROMETHAMINE (Unverified Allergy, Severe, Hives, 03/29/12) AMOXICILLIN (Verified Allergy, Unknown, 12/10/10) KETOROLAC (Verified Allergy, Unknown, 12/10/10) PENICILLINS (Verified Allergy, Unknown, 03/12/17) Pork (Verified Allergy, Unknown, 03/12/17) TRAMADOL (Verified Allergy, Unknown, 12/10/10) Medication History Scheduled Amlodipine Besylate (Norvasc), 10 MG ORAL DAILY, (Reported) Amlodipine-Benazepril 10-20 Mg* (Lotrel 10-20 Mg Capsule*), 1 EACH PO BID, ( Reported) Aspirin (Aspirin), 81 MG PO DAILY, (Reported) Carisoprodol* (Soma*), 350 MG PO Q6H, (Reported) Metformin Hcl (Metformin Hcl), 1,000 MG PO DAILY, (Reported) Scheduled PRN Acetaminophen/Codeine 300MG/30MG* (Tylenol #3*), 1 TAB PO Q4H PRN, (Reported) Bisacodyl (Dulcolax), 5 MG PO DAILY PRN, (Reported) Hydrocodone/Acetaminophen 7.5-750 (Vicodin Es 7.5-750), 1 TAB PO Q4HR PRN, ( Reported) Methocarbamol* (Robaxin-750*), 750 MG PO Q4HR PRN, (Reported) Zolpidem Tartrate* (Ambien*), 20 MG PO HS PRN, (Reported) Patient History Limited by: medical condition History Provided By: Patient, Medical Record, PMD Healthcare decision maker N Resuscitation status Full Code Advanced Directive on File No Past Medical/Surgical History Past Medical/Surgical History: (1) Ileus (2) Diabetes mellitus (3) CAD (coronary artery disease) (4) Abdominal pain (5) Hemoptysis (6) Dehydration (7) Electrolyte imbalance Review of Systems Gastrointestinal: Reports: abdominal pain, nausea, vomiting Psychiatric: Reports: anxiety, depressed feelings, emotional problems Physical Exam General Appearance: no apparent distress, alert, obese Neurologic: alert, oriented x 3, responsive, depressed affect Last 24 Hour Vital Signs Date Time Temp Pulse Resp B/P (MAP) Pulse Ox O2 Delivery O2 Flow Rate FiO2 03/13/17 20:00 97.7 85 20 129/57 97 Room Air 03/13/17 19:27 97.8 03/13/17 15:27 97.8 73 20 132/60 95 Room Air 03/13/17 11:49 97.5 84 19 151/71 92 Room Air 03/13/17 08:15 97.3 82 20 162/87 96 Room Air 03/13/17 04:00 97.2 72 20 132/72 96 Room Air 03/13/17 00:00 98.2 78 21 144/79 97 Room Air Intake and Output 03/13/17 03/14/17 19:00 07:00 Intake Total 240 ml Output Total 350 ml Balance -110 ml Intake Oral 240 ml Output Urine Total 350 ml Laboratory Tests Test 03/13/17 08:15 White Blood Count 10.3 K/UL (4.8-10.8) Red Blood Count 4.01 M/UL (4.20-5.40) L Hemoglobin 12.3 G/DL (12.0-16.0) Hematocrit 36.9 % (37.0-47.0) L Mean Corpuscular Volume 92 FL (80-99) Mean Corpuscular Hemoglobin 30.8 PG (27.0-31.0) Mean Corpuscular Hemoglobin Concent 33.5 G/DL (32.0-36.0) Red Cell Distribution Width 12.3 % (11.6-14.8) Platelet Count 221 K/UL (150-450) Mean Platelet Volume 6.9 FL (6.5-10.1) Neutrophils (%) (Auto) 83.4 % (45.0-75.0) H Lymphocytes (%) (Auto) 11.2 % (20.0-45.0) L Monocytes (%) (Auto) 4.2 % (1.0-10.0) Eosinophils (%) (Auto) 1.1 % (0.0-3.0) Basophils (%) (Auto) 0.2 % (0.0-2.0) Activated Partial Thromboplast Time 33 SEC (23-33) Sodium Level 134 MMOL/L (136-145) L Potassium Level 3.6 MMOL/L (3.5-5.1) Chloride Level 101 MMOL/L (98-107) Carbon Dioxide Level 24 MMOL/L (21-32) Anion Gap 9 (5-15) Blood Urea Nitrogen 13 mg/dL (7-18) Creatinine 0.9 MG/DL (0.55-1.30) Estimat Glomerular Filtration Rate > 60 mL/min (>60) Glucose Level 307 MG/DL (74-106) H Hemoglobin A1c 10.4 % (4.5-6.5) H Calcium Level 8.4 MG/DL (8.5-10.1) L Total Bilirubin 0.4 MG/DL (0.2-1.0) Aspartate Amino Transf (AST/SGOT) 12 U/L (15-37) L Alanine Aminotransferase (ALT/SGPT) 15 U/L (12-78) Alkaline Phosphatase 89 U/L (46-116) Total Protein 7.6 G/DL (6.4-8.2) Albumin 3.4 G/DL (3.4-5.0) Globulin 4.2 g/dL Albumin/Globulin Ratio 0.8 (1.0-2.7) L Amylase Level 102 U/L (25-115) Lipase 96 U/L (73-393) Height (Feet): 5 Height (Inches): 6.00 Weight (Pounds): 250 Medications Current Medications Medications (Trade) Dose Ordered Sig/Cherelle Route PRN Reason Start Time Stop Time Status Last Admin Dose Admin Acetaminophen (Tylenol) 650 mg Q4H PRN ORAL T>100.5 03/12/17 18:00 04/11/17 17:59 Al Hydroxide/Mg Hydroxide (Mylanta II) 30 ml Q6H PRN ORAL dyspepsia 03/12/17 18:00 04/11/17 17:59 Dextrose (Dextrose 50%) STAT PRN IV Hypoglycemia 03/12/17 18:00 04/11/17 17:59 Dextrose (Dextrose 50%) STAT PRN IV Hypoglycemia 03/12/17 21:45 04/11/17 21:44 Dextrose/Sodium Chloride 1,000 ml @ 75 mls/hr [id number] IV 03/12/17 18:30 11/8/17 18:29 03/13/17 10:10 Diphenhydramine HCl (Benadryl) 25 mg Q6H PRN ORAL Itching/Pruritis 03/12/17 18:00 04/11/17 17:59 Hydromorphone HCl (Dilaudid) 2 mg Q4H PRN IVP Severe Pain (Pain Scale 7-10) 03/12/17 21:30 03/19/17 21:29 03/13/17 18:57 Insulin Aspart (NovoLOG) before meals BEFORE MEALS AND HS SUBQ 03/13/17 06:30 04/12/17 06:29 03/13/17 20:29 Lorazepam (Ativan 2mg/ml 1ml) 1 mg Q4H PRN IV agitation 03/12/17 18:00 03/19/17 17:59 Metoclopramide HCl (Reglan) 10 mg Q8H IVP 03/13/17 20:00 04/12/17 19:59 03/13/17 20:14 Nitroglycerin (Ntg) 0.4 mg Q5M X 3 DOSES PRN SL Prn Chest Pain 03/12/17 18:00 04/11/17 17:59 Ondansetron HCl (Zofran) 4 mg Q6H PRN IVP Nausea & Vomiting 03/12/17 18:00 04/11/17 17:59 Pantoprazole (Protonix) 40 mg DAILY IV 03/13/17 09:00 04/12/17 08:59 Polyethylene Glycol (Miralax) 17 gm HSPRN PRN ORAL Constipation 03/12/17 21:00 04/11/17 20:59 Promethazine HCl/ Codeine (Phenergan with Codeine) 5 ml Q4H PRN ORAL For Cough 03/13/17 16:00 04/12/17 15:59 Temazepam (Restoril) 15 mg HSPRN PRN ORAL Insomnia 03/12/17 21:00 03/19/17 20:59 03/13/17 20:14 Assessment/Plan Status: stable Assessment/Plan anxiety d/o insomnia trazadone 50mg qhs Pavan Saldana M.D. Mar 13, 2017 23:47
[2017-03-14] VITALS (8 sets, daily range): BP systolic 132–160; BP diastolic 66–95
[2017-03-14] MEDS: Metoclopramide 10mg/2ml Inj IVP SCH ×3 (04:00→20:00)
[2017-03-14] MEDS: NovoLOG Insulin Flexpen SUBQ SCH ×4 (06:30→21:51)
[2017-03-14] MEDS ORDERED: HYDROmorphone 1mg/ml Carpuject SUBQ PRN (07:15)
[2017-03-14] MEDS: Pantoprazole Inj IV SCH (09:00)
[2017-03-14 09:23] LABS: BASOPHILS % (AUTO) 0.5 % (0.0-2.0); EOSINOPHILS % (AUTO) 0.7 % (0.0-3.0); LYMPHOCYTES % (AUTO) 12.5 % (20.0-45.0); MEAN CORPUSCULAR HGB CONC 34.2 G/DL (32.0-36.0); MEAN CORPUSCULAR VOLUME 91 FL (80-99); MEAN PLATELET VOLUME 6.1 FL (6.5-10.1); MONOCYTES % (AUTO) 5.4 % (1.0-10.0); NEUTROPHILS % (AUTO) 80.8 % (45.0-75.0); PLATELET COUNT 170 K/UL (150-450); RED BLOOD COUNT 3.98 M/UL (4.20-5.40); RED CELL DISTRIBUTION WIDTH 11.9 % (11.6-14.8); WHITE BLOOD COUNT 9.5 K/UL (4.8-10.8)
[2017-03-14 09:33] LABS: ALANINE AMINOTRANSFERASE 13 U/L (12-78); ALBUMIN/GLOBULIN RATIO 0.7 (1.0-2.7); ANION GAP 8 (5-15); ASPARTATE AMINO TRANSFERASE 16 U/L (15-37); CALCIUM 9.4 MG/DL (8.5-10.1); CARBON DIOXIDE 26 MMOL/L (21-32); CHLORIDE 97 MMOL/L (98-107); CREATININE 0.8 MG/DL (0.55-1.30); GLOMERULAR FILTRATION RATE > 60 mL/min (>60); MAGNESIUM 1.6 MG/DL (1.8-2.4); PHOSPHORUS 2.9 MG/DL (2.5-4.9); SODIUM 131 MMOL/L (136-145); TOTAL PROTEIN 7.8 G/DL (6.4-8.2)
[2017-03-14] MEDS: D5 1/2NS 1,000 ML IV SCH ×2 (10:30→23:50)
--- NOTE | 2017-03-14 11:32 | General Progress Note ---
Progress Note Progress Note Surgery: no acute events. states she feels about the same. still having abdominal pain mainly in the right lower pannus. states she is coughing up blood still and had episode this AM. no nausea or emesis. passing flatus. afebrile, HD stable , labs normal, exam benign. no acute surgical intervention necessary likely enteritis. will continue to follow Jignesh Emerson Mar 14, 2017 11:32
[2017-03-14] MEDS: Magnesium Oxide 400mg tab ORAL SCH ×2 (14:13→17:11)
--- NOTE | 2017-03-14 14:36 | Diagnostic Imaging Report ---
Clinical Indication: DYSPNEA Technique: Spiral acquisitions obtained through the chest. No IV contrast utilized, perforating physician request. Multiplanar reconstructions generated. Total dose length product 1131 mGycm. CTDIvol(s) 38 mGy. Dose reduction achieved using automated exposure control Comparison: None Findings:Ill-defined patchy groundglass opacities are seen in the right upper lobe and right lower lobe and in the left lower lobe. The largest and densest opacity is seen in the left lower lobe. There is a band of atelectasis or scarring in the right lower lobe. No effusions. No masses or nodules demonstrated. No significant congestion. The heart size is normal. No pericardial effusion. No mediastinal or hilar mass or adenopathy demonstrated. There are few prominent paratracheal and pericardial fat lymph nodes. The included portions of the thyroid are unremarkable. No axillary or chest wall mass or adenopathy. Include upper abdominal anatomy demonstrates a cholecystectomy clip. A calcification is seen in the right hepatic lobe. The bones are unremarkable. Impression: Bilateral patchy ill-defined mostly groundglass parenchymal opacities, as described. Appearance nonspecific, most likely reflecting infectious/inflammatory process. Incidental findings of prior cholecystectomy, granulomatous calcification within the liver The CT scanner at [facility] is accredited by the [employer] and the scans are performed using protocols designed to limit radiation exposure to as low as reasonably achievable to attain images of sufficient resolution adequate for diagnostic evaluation.
[2017-03-14] MEDS ORDERED: Vancomycin 1 GM in D5W 275 ML IVPB SCH (16:45)
--- NOTE | 2017-03-14 16:46 | Pulmonology Progress Note ---
Assessment/Plan Problems: (1) Pneumonia (2) Hemoptysis (3) Ileus (4) Abdominal pain (5) Diabetes mellitus (6) CAD (coronary artery disease) Assessment/Plan CT chest reviewed, interstitial infiltrate GI/surgery evaluation appreciated NPO check electrolytes sputum for c/s start IV abx ID consult Subjective Interval Events: still coughin up blood Allergies: Coded Allergies: KETOROLAC TROMETHAMINE (Unverified Allergy, Severe, Hives, 03/29/12) AMOXICILLIN (Verified Allergy, Unknown, 12/10/10) KETOROLAC (Verified Allergy, Unknown, 12/10/10) PENICILLINS (Verified Allergy, Unknown, 03/12/17) Pork (Verified Allergy, Unknown, 03/12/17) TRAMADOL (Verified Allergy, Unknown, 12/10/10) Objective Last 24 Hour Vital Signs Date Time Temp Pulse Resp B/P (MAP) Pulse Ox O2 Delivery O2 Flow Rate FiO2 03/14/17 12:00 98.2 83 15 138/78 96 03/14/17 08:09 98.2 86 21 160/83 98 Room Air 03/14/17 05:30 98.6 108 20 154/72 100 Room Air 03/14/17 00:00 97.5 20 143/72 97 Room Air 03/13/17 20:00 97.7 85 20 129/57 97 Room Air 03/13/17 19:27 97.8 Intake and Output 03/14/17 03/15/17 19:00 07:00 Intake Total 120 ml Output Total 200 ml Balance -80 ml Intake Oral 120 ml Output Urine Total 200 ml General Appearance: WD/WN HEENT: normocephalic, atraumatic Respiratory/Chest: chest wall non-tender, normal breath sounds Breasts: no masses Cardiovascular: normal peripheral pulses Abdomen: normal bowel sounds, soft, non tender Genitourinary: normal external genitalia Extremities: no cyanosis Skin: no rash Laboratory Tests 03/14/17 08:50: White Blood Count 9.5, Red Blood Count 3.98L, Hemoglobin 12.3, Hematocrit 36.1L , Mean Corpuscular Volume 91, Mean Corpuscular Hemoglobin 31.0, Mean Corpuscular Hemoglobin Concent 34.2, Red Cell Distribution Width 11.9, Platelet Count 170, Mean Platelet Volume 6.1L, Neutrophils (%) (Auto) 80.8H, Lymphocytes (%) (Auto) 12.5L, Monocytes (%) (Auto) 5.4, Eosinophils (%) (Auto) 0.7, Basophils (%) (Auto) 0.5, Prothrombin Time 10.0, Prothromb Time International Ratio 1.0, Activated Partial Thromboplast Time 27, Sodium Level 131L, Potassium Level 4.0, Chloride Level 97L, Carbon Dioxide Level 26, Anion Gap 8, Blood Urea Nitrogen 9, Creatinine 0.8, Estimat Glomerular Filtration Rate > 60, Glucose Level 250H, Calcium Level 9.4, Phosphorus Level 2.9, Magnesium Level 1.6L, Total Bilirubin 0.4, Aspartate Amino Transf (AST/SGOT) 16, Alanine Aminotransferase (ALT/SGPT) 13, Alkaline Phosphatase 87, Total Protein 7.8, Albumin 3.3L, Globulin 4.5, Albumin/Globulin Ratio 0.7L Current Medications Medications (Trade) Dose Ordered Sig/Cherelle Route PRN Reason Start Time Stop Time Status Last Admin Dose Admin Acetaminophen (Tylenol) 650 mg Q4H PRN ORAL T>100.5 03/12/17 18:00 04/11/17 17:59 Al Hydroxide/Mg Hydroxide (Mylanta II) 30 ml Q6H PRN ORAL dyspepsia 03/12/17 18:00 04/11/17 17:59 Dextrose (Dextrose 50%) STAT PRN IV Hypoglycemia 03/12/17 18:00 04/11/17 17:59 Dextrose (Dextrose 50%) STAT PRN IV Hypoglycemia 03/12/17 21:45 04/11/17 21:44 Dextrose/Sodium Chloride 1,000 ml @ 75 mls/hr [id number] IV 03/12/17 18:30 04/11/17 18:29 03/13/17 10:10 Diphenhydramine HCl (Benadryl) 25 mg Q6H PRN ORAL Itching/Pruritis 03/12/17 18:00 04/11/17 17:59 Hydromorphone HCl (Dilaudid) 2 mg Q4H PRN IM Severe Pain (Pain Scale 7-10) 03/14/17 11:30 03/21/17 11:29 03/14/17 11:36 Hydromorphone HCl (Dilaudid) 2 mg Q4H PRN IVP Severe Pain (Pain Scale 7-10) 03/12/17 21:30 03/19/17 21:29 03/14/17 15:49 Insulin Aspart (NovoLOG) before meals BEFORE MEALS AND HS SUBQ 03/13/17 06:30 04/12/17 06:29 03/14/17 12:10 Lorazepam (Ativan 2mg/ml 1ml) 1 mg Q4H PRN IV agitation 03/12/17 18:00 03/19/17 17:59 Magnesium Oxide (Mag-Ox 400mg) 400 mg THREE TIMES A DAY ORAL 03/14/17 13:00 03/19/17 09:01 03/14/17 14:13 Metoclopramide HCl (Reglan) 10 mg Q8H IVP 03/13/17 20:00 04/12/17 19:59 03/14/17 12:10 Nitroglycerin (Ntg) 0.4 mg Q5M X 3 DOSES PRN SL Prn Chest Pain 03/12/17 18:00 04/11/17 17:59 Ondansetron HCl (Zofran) 4 mg Q6H PRN IVP Nausea & Vomiting 03/12/17 18:00 04/11/17 17:59 Pantoprazole (Protonix) 40 mg DAILY IV 03/13/17 09:00 04/12/17 08:59 Polyethylene Glycol (Miralax) 17 gm HSPRN PRN ORAL Constipation 03/12/17 21:00 04/11/17 20:59 Promethazine HCl/ Codeine (Phenergan with Codeine) 5 ml Q4H PRN ORAL For Cough 03/13/17 16:00 04/12/17 15:59 Temazepam (Restoril) 15 mg HSPRN PRN ORAL Insomnia 03/12/17 21:00 03/19/17 20:59 03/13/17 20:14 Trazodone HCl (Desyrel) 50 mg BEDTIME ORAL 03/14/17 21:00 04/13/17 20:59 LEONORA GIFFORD Mar 14, 2017 16:46
--- NOTE | 2017-03-14 16:53 | GI Progress Note ---
Assessment/Plan Problems: (1) Electrolyte imbalance ICD Codes: E87.8 - Other disorders of electrolyte and fluid balance, not elsewhere classified SNOMED: 742770662 (2) Dehydration ICD Codes: E86.0 - Dehydration SNOMED: 60211484 (3) Abdominal pain ICD Codes: R10.9 - Unspecified abdominal pain SNOMED: 07583685 Qualifiers: Qualified Codes: R10.9 - Unspecified abdominal pain (4) Diabetes mellitus ICD Codes: E11.9 - Type 2 diabetes mellitus without complications SNOMED: 86277826 (5) Ileus ICD Codes: K56.7 - Ileus, unspecified SNOMED: 149009551 (6) Hx of cholecystectomy ICD Codes: Z90.49 - Acquired absence of other specified parts of digestive tract SNOMED: 45865251, 404455087 Status: progressing Status Narrative Discussed with Dr. Kaur. Assessment/Plan CT AP reviewed >> mild enteritis/ilues flatus (+) DM management ileus management FLD trial pain mgmt IV hydration + electrolyte replacement bowel decompression if necessary repeat imaging studies prn zofran prn, reglan for persistent vomiting PT/OT fu labs outpatient GI procedures Subjective Subjective abdominal pain Objective Last 24 Hour Vital Signs Date Time Temp Pulse Resp B/P (MAP) Pulse Ox O2 Delivery O2 Flow Rate FiO2 03/14/17 12:00 98.2 83 15 138/78 96 03/14/17 08:09 98.2 86 21 160/83 98 Room Air 03/14/17 05:30 98.6 108 20 154/72 100 Room Air 03/14/17 00:00 97.5 20 143/72 97 Room Air 03/13/17 20:00 97.7 85 20 129/57 97 Room Air 03/13/17 19:27 97.8 Intake and Output 03/14/17 03/15/17 19:00 07:00 Intake Total 120 ml Output Total 200 ml Balance -80 ml Intake Oral 120 ml Output Urine Total 200 ml Laboratory Tests Test 03/14/17 08:50 White Blood Count 9.5 K/UL (4.8-10.8) Red Blood Count 3.98 M/UL (4.20-5.40) L Hemoglobin 12.3 G/DL (12.0-16.0) Hematocrit 36.1 % (37.0-47.0) L Mean Corpuscular Volume 91 FL (80-99) Mean Corpuscular Hemoglobin 31.0 PG (27.0-31.0) Mean Corpuscular Hemoglobin Concent 34.2 G/DL (32.0-36.0) Red Cell Distribution Width 11.9 % (11.6-14.8) Platelet Count 170 K/UL (150-450) Mean Platelet Volume 6.1 FL (6.5-10.1) L Neutrophils (%) (Auto) 80.8 % (45.0-75.0) H Lymphocytes (%) (Auto) 12.5 % (20.0-45.0) L Monocytes (%) (Auto) 5.4 % (1.0-10.0) Eosinophils (%) (Auto) 0.7 % (0.0-3.0) Basophils (%) (Auto) 0.5 % (0.0-2.0) Prothrombin Time 10.0 SEC (9.30-11.50) Prothromb Time International Ratio 1.0 (0.9-1.1) Activated Partial Thromboplast Time 27 SEC (23-33) Sodium Level 131 MMOL/L (136-145) L Potassium Level 4.0 MMOL/L (3.5-5.1) Chloride Level 97 MMOL/L (98-107) L Carbon Dioxide Level 26 MMOL/L (21-32) Anion Gap 8 (5-15) Blood Urea Nitrogen 9 mg/dL (7-18) Creatinine 0.8 MG/DL (0.55-1.30) Estimat Glomerular Filtration Rate > 60 mL/min (>60) Glucose Level 250 MG/DL (74-106) H Calcium Level 9.4 MG/DL (8.5-10.1) Phosphorus Level 2.9 MG/DL (2.5-4.9) Magnesium Level 1.6 MG/DL (1.8-2.4) L Total Bilirubin 0.4 MG/DL (0.2-1.0) Aspartate Amino Transf (AST/SGOT) 16 U/L (15-37) Alanine Aminotransferase (ALT/SGPT) 13 U/L (12-78) Alkaline Phosphatase 87 U/L (46-116) Total Protein 7.8 G/DL (6.4-8.2) Albumin 3.3 G/DL (3.4-5.0) L Globulin 4.5 g/dL Albumin/Globulin Ratio 0.7 (1.0-2.7) L Height (Feet): 5 Height (Inches): 6.00 Weight (Pounds): 250 General Appearance: alert, morbidly obese Cardiovascular: normal rate Respiratory/Chest: normal breath sounds, no respiratory distress Abdominal Exam: normal bowel sounds, non tender, soft Liz Chen N.P. Mar 14, 2017 16:53
[2017-03-14] MEDS: Aztreonam Inj 1 GM in NS 55 ML IVPB SCH (17:50)
[2017-03-14] MEDS: Vancomycin 1.5gm/D5W 250ml 250 ML IVPB SCH (21:00)
[2017-03-14] MEDS: TraZODone 50mg tab ORAL SCH (21:50)
[2017-03-14] MEDS ORDERED: Lidocaine 1% Plain 30 ml INJ ONE (23:45)
[2017-03-14] MEDS ORDERED: Heparin 2000 units/Ns 1000ml INJ ONE (23:45)
[2017-03-15] MEDS: Aztreonam Inj 1 GM in NS 55 ML IVPB SCH ×3 (02:00→17:15)
[2017-03-15 04:00] VITALS: BP 140/63
[2017-03-15] MEDS: Metoclopramide 10mg/2ml Inj IVP SCH ×3 (04:00→20:04)
[2017-03-15] MEDS: NovoLOG Insulin Flexpen SUBQ SCH ×4 (06:01→21:15)
[2017-03-15 07:33] LABS: BASOPHILS % (AUTO) 0.4 % (0.0-2.0); EOSINOPHILS % (AUTO) 2.4 % (0.0-3.0); LYMPHOCYTES % (AUTO) 25.5 % (20.0-45.0); MEAN CORPUSCULAR HEMOGLOBIN 30.1 PG (27.0-31.0); MEAN CORPUSCULAR HGB CONC 33.3 G/DL (32.0-36.0); MEAN CORPUSCULAR VOLUME 90 FL (80-99); MEAN PLATELET VOLUME 6.3 FL (6.5-10.1); MONOCYTES % (AUTO) 7.1 % (1.0-10.0); NEUTROPHILS % (AUTO) 64.7 % (45.0-75.0); PLATELET COUNT 218 K/UL (150-450); RED BLOOD COUNT 3.91 M/UL (4.20-5.40); RED CELL DISTRIBUTION WIDTH 11.8 % (11.6-14.8); WHITE BLOOD COUNT 6.4 K/UL (4.8-10.8)
[2017-03-15 07:37] LABS: ANION GAP 5 (5-15); CALCIUM 9.3 MG/DL (8.5-10.1); CARBON DIOXIDE 29 MMOL/L (21-32); CHLORIDE 98 MMOL/L (98-107); CREATININE 0.8 MG/DL (0.55-1.30); GLOMERULAR FILTRATION RATE > 60 mL/min (>60); MAGNESIUM 1.7 MG/DL (1.8-2.4); POTASSIUM 3.3 MMOL/L (3.5-5.1); SODIUM 132 MMOL/L (136-145)
[2017-03-15 08:00] VITALS: BP 134/65
--- NOTE | 2017-03-15 09:40 | Diagnostic Imaging Report ---
APPROVED REPORT CPT Code: 68231 Present Symptoms Lower Extremity Pain: Comments: Hx AL, HTN, Chest Pain. BILATERAL: Imaging reveals a patent deep venous system bilaterally. There is no evidence of thrombus within the femoral, popliteal or tibial segments. The greater saphenous veins are also within normal limits. Doppler indicates normal spontaneous flow within these segments. Incidental finding: Herrera's cyst in the left popliteal fossa measuring 4.8 cm x 1.9 cm x 1.1 cm.
[2017-03-15] MEDS: Vancomycin 1.5gm/D5W 250ml 250 ML IVPB SCH ×2 (09:56→21:35)
[2017-03-15] MEDS: Pantoprazole Inj IV SCH (09:56)
[2017-03-15] MEDS: Magnesium Oxide 400mg tab ORAL SCH ×2 (09:57→12:02)
[2017-03-15] MEDS ORDERED: KCl 10% 40mEq/30ml liquid ORAL ONE (11:30)
[2017-03-15 12:00] VITALS: BP 130/68
--- NOTE | 2017-03-15 12:33 | GI Progress Note ---
Assessment/Plan Problems: (1) Electrolyte imbalance ICD Codes: E87.8 - Other disorders of electrolyte and fluid balance, not elsewhere classified SNOMED: 135348082 (2) Dehydration ICD Codes: E86.0 - Dehydration SNOMED: 51021110 (3) Abdominal pain ICD Codes: R10.9 - Unspecified abdominal pain SNOMED: 95766511 Qualifiers: Qualified Codes: R10.9 - Unspecified abdominal pain (4) Diabetes mellitus ICD Codes: E11.9 - Type 2 diabetes mellitus without complications SNOMED: 25696262 (5) Ileus ICD Codes: K56.7 - Ileus, unspecified SNOMED: 948206486 (6) Hx of cholecystectomy ICD Codes: Z90.49 - Acquired absence of other specified parts of digestive tract SNOMED: 64456109, 543699563 Status: stable, progressing Status Narrative Discussed with Dr. Kaur. Assessment/Plan CT AP reviewed >> mild enteritis/ilues flatus (+) DM management adv to ADA diet add bowel regime pain mgmt IV hydration + electrolyte replacement repeat imaging studies prn zofran prn, reglan for persistent vomiting PT/OT fu labs outpatient GI procedures Subjective Subjective abdominal pain constipation Objective Last 24 Hour Vital Signs Date Time Temp Pulse Resp B/P (MAP) Pulse Ox O2 Delivery O2 Flow Rate FiO2 03/15/17 08:00 97.9 72 16 134/65 94 03/15/17 04:00 97.7 71 20 140/63 97 Room Air 03/14/17 23:32 97.6 79 17 154/72 96 Room Air 03/14/17 20:07 80 17 Room Air 03/14/17 19:57 97.7 17 147/92 96 Room Air 03/14/17 16:00 97.7 77 17 148/95 95 Laboratory Tests Test 03/15/17 06:20 White Blood Count 6.4 K/UL (4.8-10.8) Red Blood Count 3.91 M/UL (4.20-5.40) L Hemoglobin 11.8 G/DL (12.0-16.0) L Hematocrit 35.4 % (37.0-47.0) L Mean Corpuscular Volume 90 FL (80-99) Mean Corpuscular Hemoglobin 30.1 PG (27.0-31.0) Mean Corpuscular Hemoglobin Concent 33.3 G/DL (32.0-36.0) Red Cell Distribution Width 11.8 % (11.6-14.8) Platelet Count 218 K/UL (150-450) Mean Platelet Volume 6.3 FL (6.5-10.1) L Neutrophils (%) (Auto) 64.7 % (45.0-75.0) Lymphocytes (%) (Auto) 25.5 % (20.0-45.0) Monocytes (%) (Auto) 7.1 % (1.0-10.0) Eosinophils (%) (Auto) 2.4 % (0.0-3.0) Basophils (%) (Auto) 0.4 % (0.0-2.0) Sodium Level 132 MMOL/L (136-145) L Potassium Level 3.3 MMOL/L (3.5-5.1) L Chloride Level 98 MMOL/L (98-107) Carbon Dioxide Level 29 MMOL/L (21-32) Anion Gap 5 (5-15) Blood Urea Nitrogen 7 mg/dL (7-18) Creatinine 0.8 MG/DL (0.55-1.30) Estimat Glomerular Filtration Rate > 60 mL/min (>60) Glucose Level 198 MG/DL (74-106) H Calcium Level 9.3 MG/DL (8.5-10.1) Magnesium Level 1.7 MG/DL (1.8-2.4) L Microbiology Date/Time Source Procedure Growth Status 03/14/17 17:20 Sputum Gram Stain - Final Resulted 03/14/17 17:20 Sputum Sputum Culture Pending Resulted Height (Feet): 5 Height (Inches): 6.00 Weight (Pounds): 250 General Appearance: no apparent distress, morbidly obese, other - Ambulating Cardiovascular: normal rate Respiratory/Chest: normal breath sounds, no respiratory distress Abdominal Exam: normal bowel sounds, non tender, soft Extremities: normal range of motion Liz Chen N.P. Mar 15, 2017 12:33
--- NOTE | 2017-03-15 12:50 | General Progress Note ---
Progress Note Progress Note Surgery: doing well. no acute events. comfortable. exam unchanged. labs normal. no acute surgical intervention. okay to d/c from surgical standpoint Jignesh Emerson Mar 15, 2017 12:50
[2017-03-15] MEDS: D5 1/2NS 1,000 ML IV SCH (13:10)
[2017-03-15] MEDS: Docusate 100mg cap ORAL SCH ×2 (14:12→17:08)
--- NOTE | 2017-03-15 15:12 | Pulmonology Progress Note ---
Assessment/Plan Assessment/Plan ASSESSMENT abdominal pain ileus enteritis PNA hemoptysis-resolved dehydration PNA DM OOC e/lyte imbalance Herrera cyst left popliteal morbid obesity anxiety PLAN OF CARE MS floor CT chest with evidence of interstitial infiltrate abx sputum cx ID consult appreciated O2 HHN no further hemoptysis GI and surgery follow CT AP reviewed with mild enteritis/ileus diet advanced, tolerates a/emetic prn bowel regimen pain management per GI -outpatient GI procedures IV hydration monitor lytes, replace K and Mg [id number] not at goal SSI and add Levemir PT/OT Venous Duplex - no acute DVT, accidental finding left popliteal Herrera cyst per surgery no acute surgical interventions necessary surgeon cleared for dc awaiting sputum cx and ID input re home abx for PNA case discussed and evaluated by supervising physician Subjective Allergies: Coded Allergies: KETOROLAC TROMETHAMINE (Unverified Allergy, Severe, Hives, 03/29/12) AMOXICILLIN (Verified Allergy, Unknown, 12/10/10) KETOROLAC (Verified Allergy, Unknown, 12/10/10) PENICILLINS (Verified Allergy, Unknown, 03/12/17) Pork (Verified Allergy, Unknown, 03/12/17) TRAMADOL (Verified Allergy, Unknown, 12/10/10) Subjective feeling better still c/o abdominal pain + cough, no hemoptysis no SOB Objective Last 24 Hour Vital Signs Date Time Temp Pulse Resp B/P (MAP) Pulse Ox O2 Delivery O2 Flow Rate FiO2 03/15/17 12:00 98.0 70 18 130/68 Room Air 03/15/17 08:00 97.9 72 16 134/65 94 03/15/17 04:00 97.7 71 20 140/63 97 Room Air 03/14/17 23:32 97.6 79 17 154/72 96 Room Air 03/14/17 20:07 80 17 Room Air 03/14/17 19:57 97.7 17 147/92 96 Room Air 03/14/17 16:00 97.7 77 17 148/95 95 General Appearance: WD/WN HEENT: normocephalic, atraumatic, anicteric, mucous membranes moist, PERRL Respiratory/Chest: chest wall non-tender, lungs clear, normal breath sounds, no respiratory distress, no accessory muscle use Cardiovascular: normal peripheral pulses, normal rate, regular rhythm, no JVD, other - LUE PICC Abdomen: normal bowel sounds, soft, non tender - obese Genitourinary: normal external genitalia Neurologic/Psychiatric: abnormal gait - due to pain , alert, oriented x 3, responsive Musculoskeletal: normal muscle bulk Microbiology Date/Time Source Procedure Growth Status 03/14/17 17:20 Sputum Gram Stain - Final Resulted 03/14/17 17:20 Sputum Sputum Culture Pending Resulted Laboratory Tests 03/15/17 06:20: White Blood Count 6.4, Red Blood Count 3.91L, Hemoglobin 11.8L, Hematocrit 35.4L , Mean Corpuscular Volume 90, Mean Corpuscular Hemoglobin 30.1, Mean Corpuscular Hemoglobin Concent 33.3, Red Cell Distribution Width 11.8, Platelet Count 218, Mean Platelet Volume 6.3L, Neutrophils (%) (Auto) 64.7, Lymphocytes ( %) (Auto) 25.5, Monocytes (%) (Auto) 7.1, Eosinophils (%) (Auto) 2.4, Basophils (%) (Auto) 0.4, Sodium Level 132L, Potassium Level 3.3L, Chloride Level 98, Carbon Dioxide Level 29, Anion Gap 5, Blood Urea Nitrogen 7, Creatinine 0.8, Estimat Glomerular Filtration Rate > 60, Glucose Level 198H, Calcium Level 9.3, Magnesium Level 1.7L Current Medications Medications (Trade) Dose Ordered Sig/Cherelle Route PRN Reason Start Time Stop Time Status Last Admin Dose Admin Acetaminophen (Tylenol) 650 mg Q4H PRN ORAL T>100.5 03/12/17 18:00 04/11/17 17:59 Al Hydroxide/Mg Hydroxide (Mylanta II) 30 ml Q6H PRN ORAL dyspepsia 03/12/17 18:00 04/11/17 17:59 Amlodipine Besylate (Norvasc) 10 mg DAILY ORAL 03/16/17 09:00 04/15/17 08:59 Aztreonam 1 gm/ Sodium Chloride 55 ml @ 110 mls/hr Q8H IVPB 03/14/17 18:00 03/21/17 17:59 03/14/17 17:50 Chlorhexidine Gluconate (Naomi-Hex 2%) 1 applic 2000 TOPIC 03/15/17 20:00 04/14/17 19:59 Dextrose (Dextrose 50%) STAT PRN IV Hypoglycemia 03/12/17 18:00 04/11/17 17:59 Dextrose/Sodium Chloride 1,000 ml @ 75 mls/hr [id number] IV 03/12/17 18:30 04/11/17 18:29 03/13/17 10:10 Diphenhydramine HCl (Benadryl) 25 mg Q6H PRN ORAL Itching/Pruritis 03/12/17 18:00 04/11/17 17:59 03/14/17 17:52 Docusate Sodium (Colace) 100 mg THREE TIMES A DAY ORAL 03/15/17 14:00 04/14/17 13:59 03/15/17 14:12 Hydromorphone HCl (Dilaudid) 2 mg Q4H PRN IM Severe Pain (Pain Scale 7-10) 03/14/17 11:30 03/21/17 11:29 03/15/17 12:03 Hydromorphone HCl (Dilaudid) 2 mg Q4H PRN IVP Severe Pain (Pain Scale 7-10) 03/12/17 21:30 03/19/17 21:29 03/14/17 19:56 Insulin Aspart (NovoLOG) before meals BEFORE MEALS AND HS SUBQ 03/13/17 06:30 04/12/17 06:29 03/15/17 12:11 Levofloxacin 100 ml @ 100 mls/hr Q24H IVPB 03/14/17 18:45 03/21/17 18:44 03/14/17 18:34 Lorazepam (Ativan 2mg/ml 1ml) 1 mg Q4H PRN IV agitation 03/12/17 18:00 03/19/17 17:59 Magnesium Oxide (Mag-Ox 400mg) 400 mg THREE TIMES A DAY ORAL 03/14/17 13:00 03/19/17 09:01 03/15/17 12:02 Metoclopramide HCl (Reglan) 10 mg Q8H IVP 03/13/17 20:00 04/12/17 19:59 03/14/17 12:10 Nitroglycerin (Ntg) 0.4 mg Q5M X 3 DOSES PRN SL Prn Chest Pain 03/12/17 18:00 04/11/17 17:59 Ondansetron HCl (Zofran) 4 mg Q6H PRN IVP Nausea & Vomiting 03/12/17 18:00 04/11/17 17:59 Pantoprazole (Protonix) 40 mg DAILY IV 03/13/17 09:00 04/12/17 08:59 Polyethylene Glycol (Miralax) 17 gm BEDTIME ORAL 03/15/17 21:00 04/14/17 20:59 Polyethylene Glycol (Miralax) 17 gm HSPRN PRN ORAL Constipation 03/12/17 21:00 04/11/17 20:59 Promethazine HCl/ Codeine (Phenergan with Codeine) 5 ml Q4H PRN ORAL For Cough 03/13/17 16:00 04/12/17 15:59 Temazepam (Restoril) 15 mg HSPRN PRN ORAL Insomnia 03/12/17 21:00 03/19/17 20:59 03/13/17 20:14 Trazodone HCl (Desyrel) 50 mg BEDTIME ORAL 03/14/17 21:00 04/13/17 20:59 03/14/17 21:50 Vancomycin HCl (Vanco rx to dose) 1 ea DAILY PRN MISC PRN RX TO DOSE PROTOCOL 03/14/17 17:30 04/13/17 17:29 Vancomycin HCl/ Dextrose 250 ml @ 125 mls/hr Q12HR IVPB 03/14/17 21:00 03/19/17 20:59 Darin Rajan)Susi NP Mar 15, 2017 15:12
[2017-03-15 16:00] VITALS: BP 147/98
--- NOTE | 2017-03-15 16:32 | Diagnostic Imaging Report ---
Indications: Needs long-term IV access Technique: Ultrasound confirms patent compressible left brachial vein. Total sterile technique, including sterile probe cover and sterile gel, hat, mask,, sterile gown, large sterile drape, and preparation with 2% chlorhexidine utilized. Local anesthesia with 1% lidocaine. Under real-time ultrasound guidance, puncture brachial vein using 21-gauge needle, documented and archived, passage 0.018 guidewire under direct fluoroscopy, which was used to determine appropriate catheter length, exchange for 5 [place] peel-away sheath. 5 [place] Bard dual-lumen power PICC cut to 44 cm. It was inserted through the peel-away sheath. Peel-away sheath and guidewire removed. Catheter fixed to the skin. Both catheter ports aspirated and flushed. Patient tolerated procedure well, without immediate complication. Digital radiograph documents satisfactory catheter tip position, at the cavoatrial junction. Total fluoroscopy time 0.3 minutes. Total dose area product 9.9 dGycm2 Impression: Successful placement of left arm PICC under sonographic and fluoroscopic guidance, as described above.
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
[2017-03-15 20:00] VITALS: BP 159/112
[2017-03-15] MEDS ORDERED: Dyna-Hex 2% Top Sol 2oz TOPIC SCH (20:00)
[2017-03-15] MEDS ORDERED: Miralax 17gm pkt ORAL SCH (21:00)
[2017-03-15] MEDS: TraZODone 50mg tab ORAL SCH (21:09)
--- NOTE | 2017-03-15 23:54 | General Progress Note ---
Assessment/Plan Status: stable, progressing Subjective Constitutional: Reports: malaise, weakness Neurologic/Psychiatric: Reports: anxiety, depressed, emotional problems Allergies: Coded Allergies: KETOROLAC TROMETHAMINE (Unverified Allergy, Severe, Hives, 03/29/12) AMOXICILLIN (Verified Allergy, Unknown, 12/10/10) KETOROLAC (Verified Allergy, Unknown, 12/10/10) PENICILLINS (Verified Allergy, Unknown, 03/12/17) Pork (Verified Allergy, Unknown, 03/12/17) TRAMADOL (Verified Allergy, Unknown, 12/10/10) Objective Last 24 Hour Vital Signs Date Time Temp Pulse Resp B/P (MAP) Pulse Ox O2 Delivery O2 Flow Rate FiO2 03/15/17 20:34 97.5 03/15/17 20:00 96.9 87 20 159/112 98 Room Air 03/15/17 16:00 97.5 70 15 147/98 91 03/15/17 12:00 98.0 70 18 130/68 Room Air 03/15/17 08:00 97.9 72 16 134/65 94 03/15/17 04:00 97.7 71 20 140/63 97 Room Air Intake and Output 03/15/17 03/16/17 19:00 07:00 Intake Total 240 ml Balance 240 ml Intake Oral 240 ml # Voids 11 Laboratory Tests 03/15/17 06:20: White Blood Count 6.4, Red Blood Count 3.91L, Hemoglobin 11.8L, Hematocrit 35.4L , Mean Corpuscular Volume 90, Mean Corpuscular Hemoglobin 30.1, Mean Corpuscular Hemoglobin Concent 33.3, Red Cell Distribution Width 11.8, Platelet Count 218, Mean Platelet Volume 6.3L, Neutrophils (%) (Auto) 64.7, Lymphocytes ( %) (Auto) 25.5, Monocytes (%) (Auto) 7.1, Eosinophils (%) (Auto) 2.4, Basophils (%) (Auto) 0.4, Sodium Level 132L, Potassium Level 3.3L, Chloride Level 98, Carbon Dioxide Level 29, Anion Gap 5, Blood Urea Nitrogen 7, Creatinine 0.8, Estimat Glomerular Filtration Rate > 60, Glucose Level 198H, Calcium Level 9.3, Magnesium Level 1.7L Height (Feet): 5 Height (Inches): 6.00 Weight (Pounds): 250 General Appearance: no apparent distress, alert, overweight Neurologic: alert, oriented x 3, responsive, depressed affect Pavan Saldana M.D. Mar 15, 2017 23:54
[2017-03-16 00:43] VITALS: BP 138/98
[2017-03-16] MEDS: D5 1/2NS 1,000 ML IV SCH (02:30)
[2017-03-16 04:00] VITALS: BP 133/95
[2017-03-16] MEDS: Metoclopramide 10mg/2ml Inj IVP SCH ×2 (04:24→12:48)
[2017-03-16] MEDS: NovoLOG Insulin Flexpen SUBQ SCH ×2 (06:09→12:47)
[2017-03-16 08:03] LABS: BASOPHILS % (AUTO) 0.6 % (0.0-2.0); EOSINOPHILS % (AUTO) 2.9 % (0.0-3.0); LYMPHOCYTES % (AUTO) 23.9 % (20.0-45.0); MEAN CORPUSCULAR HEMOGLOBIN 30.1 PG (27.0-31.0); MEAN CORPUSCULAR HGB CONC 33.2 G/DL (32.0-36.0); MEAN CORPUSCULAR VOLUME 91 FL (80-99); MEAN PLATELET VOLUME 6.2 FL (6.5-10.1); MONOCYTES % (AUTO) 7.8 % (1.0-10.0); NEUTROPHILS % (AUTO) 64.8 % (45.0-75.0); PLATELET COUNT 205 K/UL (150-450); RED BLOOD COUNT 3.89 M/UL (4.20-5.40); RED CELL DISTRIBUTION WIDTH 11.8 % (11.6-14.8); WHITE BLOOD COUNT 6.1 K/UL (4.8-10.8)
[2017-03-16 08:25] LABS: ANION GAP 5 (5-15); CALCIUM 9.7 MG/DL (8.5-10.1); CARBON DIOXIDE 29 MMOL/L (21-32); CHLORIDE 96 MMOL/L (98-107); CREATININE 0.8 MG/DL (0.55-1.30); GLOMERULAR FILTRATION RATE > 60 mL/min (>60); MAGNESIUM 1.6 MG/DL (1.8-2.4); POTASSIUM 3.5 MMOL/L (3.5-5.1); SODIUM 130 MMOL/L (136-145)
--- NOTE | 2017-03-16 08:55 | Pulmonology Progress Note ---
Assessment/Plan Assessment/Plan ASSESSMENT abdominal pain ileus enteritis PNA hemoptysis-resolved dehydration PNA DM OOC e/lyte imbalance Herrera cyst left popliteal morbid obesity anxiety PLAN OF CARE MS floor CT chest with evidence of interstitial infiltrate abx sputum cx negative ID consult appreciated O2 HHN no further hemoptysis GI and surgery follow CT AP reviewed with mild enteritis/ileus diet advanced, tolerates a/emetic prn bowel regimen pain management per GI -outpatient GI procedures IV hydration monitor lytes, replace K and Mg [id number] not at goal SSI and add Levemir PT/OT Venous Duplex - no acute DVT, accidental finding left popliteal Herrera cyst per surgery no acute surgical interventions necessary surgeon cleared for dc awaiting ID input re home abx for PNA dc plan after ID clearance case discussed and evaluated by supervising physician Subjective Allergies: Coded Allergies: KETOROLAC TROMETHAMINE (Unverified Allergy, Severe, Hives, 03/29/12) AMOXICILLIN (Verified Allergy, Unknown, 12/10/10) KETOROLAC (Verified Allergy, Unknown, 12/10/10) PENICILLINS (Verified Allergy, Unknown, 03/12/17) Pork (Verified Allergy, Unknown, 03/12/17) TRAMADOL (Verified Allergy, Unknown, 12/10/10) Subjective feeling better still c/o intermittent abdominal pain + cough, no hemoptysis no SOB Objective Last 24 Hour Vital Signs Date Time Temp Pulse Resp B/P (MAP) Pulse Ox O2 Delivery O2 Flow Rate FiO2 03/16/17 04:00 97.7 74 18 133/95 97 Room Air 03/16/17 00:44 97.9 03/16/17 00:43 97.9 75 18 138/98 96 Room Air 03/15/17 20:00 96.9 87 20 159/112 98 Room Air 03/15/17 16:00 97.5 70 15 147/98 91 03/15/17 12:00 98.0 70 18 130/68 Room Air Objective General Appearance: WD/WN HEENT: normocephalic, atraumatic, anicteric, mucous membranes moist, PERRL Respiratory/Chest: chest wall non-tender, lungs clear, normal breath sounds, no respiratory distress, no accessory muscle use Cardiovascular: normal peripheral pulses, normal rate, regular rhythm, no JVD, other - LUE PICC Abdomen: normal bowel sounds, soft, non tender - obese Genitourinary: normal external genitalia Neurologic/Psychiatric: abnormal gait - due to pain , alert, oriented x 3, responsive Musculoskeletal: normal muscle bulk Microbiology Date/Time Source Procedure Growth Status 03/16/17 00:10 Nasal Nares Influenza Types A,B Antigen (ABHI) - Final Complete 03/14/17 17:20 Sputum Gram Stain - Final Resulted 03/14/17 17:20 Sputum Sputum Culture - Preliminary NORMAL UPPER RESPIRATORY KANIKA PRESENT Resulted Laboratory Tests 03/16/17 07:45: White Blood Count 6.1, Red Blood Count 3.89L, Hemoglobin 11.7L, Hematocrit 35.3L , Mean Corpuscular Volume 91, Mean Corpuscular Hemoglobin 30.1, Mean Corpuscular Hemoglobin Concent 33.2, Red Cell Distribution Width 11.8, Platelet Count 205, Mean Platelet Volume 6.2L, Neutrophils (%) (Auto) 64.8, Lymphocytes ( %) (Auto) 23.9, Monocytes (%) (Auto) 7.8, Eosinophils (%) (Auto) 2.9, Basophils (%) (Auto) 0.6, Sodium Level 130L, Potassium Level 3.5, Chloride Level 96L, Carbon Dioxide Level 29, Anion Gap 5, Blood Urea Nitrogen 8, Creatinine 0.8, Estimat Glomerular Filtration Rate > 60, Glucose Level 204H, Calcium Level 9.7, Magnesium Level 1.6L, Vancomycin Level Trough 12.6H, Coccidioides Antibody ( Comp Fix) [Pending], Cryptococcus Antigen [Pending], Histoplasma Antigen [ Pending], HIV (1&2) Antibody Rapid Negative Current Medications Medications (Trade) Dose Ordered Sig/Cherelle Route PRN Reason Start Time Stop Time Status Last Admin Dose Admin Acetaminophen (Tylenol) 650 mg Q4H PRN ORAL T>100.5 03/12/17 18:00 04/11/17 17:59 Al Hydroxide/Mg Hydroxide (Mylanta II) 30 ml Q6H PRN ORAL dyspepsia 03/12/17 18:00 04/11/17 17:59 Amlodipine Besylate (Norvasc) 10 mg DAILY ORAL 03/16/17 09:00 04/15/17 08:59 Chlorhexidine Gluconate (Naomi-Hex 2%) 1 applic 1999 TOPIC 03/15/17 20:00 04/14/17 19:59 03/15/17 21:09 Dextrose (Dextrose 50%) STAT PRN IV Hypoglycemia 03/12/17 18:00 04/11/17 17:59 Dextrose/Sodium Chloride 1,000 ml @ 75 mls/hr [id number] IV 03/12/17 18:30 04/11/17 18:29 03/13/17 10:10 Diphenhydramine HCl (Benadryl) 25 mg Q6H PRN ORAL Itching/Pruritis 03/12/17 18:00 04/11/17 17:59 03/15/17 22:10 Docusate Sodium (Colace) 100 mg THREE TIMES A DAY ORAL 03/15/17 14:00 04/14/17 13:59 03/15/17 17:08 Hydromorphone HCl (Dilaudid) 2 mg Q4H PRN IM Severe Pain (Pain Scale 7-10) 03/14/17 11:30 03/21/17 11:29 03/15/17 12:03 Hydromorphone HCl (Dilaudid) 2 mg Q4H PRN IVP Severe Pain (Pain Scale 7-10) 03/12/17 21:30 03/19/17 21:29 03/16/17 04:24 Insulin Aspart (NovoLOG) before meals BEFORE MEALS AND HS SUBQ 03/13/17 06:30 04/12/17 06:29 03/16/17 06:09 Insulin Detemir (Levemir) 10 units Q24H SUBQ 03/16/17 09:00 04/15/17 08:59 Levofloxacin 100 ml @ 100 mls/hr Q24H IVPB 03/14/17 18:45 03/21/17 18:44 03/15/17 18:42 Lorazepam (Ativan 2mg/ml 1ml) 1 mg Q4H PRN IV agitation 03/12/17 18:00 03/19/17 17:59 Metoclopramide HCl (Reglan) 10 mg Q8H IVP 03/13/17 20:00 04/12/17 19:59 03/16/17 04:24 Nitroglycerin (Ntg) 0.4 mg Q5M X 3 DOSES PRN SL Prn Chest Pain 03/12/17 18:00 04/11/17 17:59 Ondansetron HCl (Zofran) 4 mg Q6H PRN IVP Nausea & Vomiting 03/12/17 18:00 04/11/17 17:59 Pantoprazole (Protonix) 40 mg DAILY IV 03/13/17 09:00 04/12/17 08:59 Polyethylene Glycol (Miralax) 17 gm BEDTIME ORAL 03/15/17 21:00 04/14/17 20:59 03/15/17 21:09 Polyethylene Glycol (Miralax) 17 gm HSPRN PRN ORAL Constipation 03/12/17 21:00 04/11/17 20:59 Promethazine HCl/ Codeine (Phenergan with Codeine) 5 ml Q4H PRN ORAL For Cough 03/13/17 16:00 04/12/17 15:59 Temazepam (Restoril) 15 mg HSPRN PRN ORAL Insomnia 03/12/17 21:00 03/19/17 20:59 03/13/17 20:14 Trazodone HCl (Desyrel) 50 mg BEDTIME ORAL 03/14/17 21:00 04/13/17 20:59 03/15/17 21:09 Vancomycin HCl (Vanco rx to dose) 1 ea DAILY PRN MISC PRN RX TO DOSE PROTOCOL 03/14/17 17:30 04/13/17 17:29 Vancomycin HCl 1 gm/Dextrose 275 ml @ 183.708 mls/hr Q8HR@0100,0900,1700 IVPB 03/16/17 17:00 03/21/17 16:59 Vancomycin HCl/ Dextrose 250 ml @ 125 mls/hr Q12HR IVPB 03/14/17 21:00 03/16/17 11:00 03/15/17 21:35 Darin (Alejandro)Susi NP Mar 16, 2017 08:55
[2017-03-16] MEDS ORDERED: Levemir Flexpen SUBQ SCH (09:00)
[2017-03-16 09:31] VITALS: BP 133/95
[2017-03-16] MEDS: Docusate 100mg cap ORAL SCH ×2 (09:31→12:48)
[2017-03-16] MEDS: Vancomycin 1.5gm/D5W 250ml 250 ML IVPB SCH (09:32)
[2017-03-16] MEDS: Pantoprazole Inj IV SCH (09:33)
[2017-03-16] MEDS ORDERED: Sodium Phosphate 30 MM in NS 275 ML IVPB ONE (11:00)
[2017-03-16] MEDS ORDERED: LEVAQUIN500 MG ORAL (12:24)
--- NOTE | 2017-03-16 12:25 | General Progress Note ---
Progress Note Progress Note Surgery: no acute events. doing well. still with abdominal cramping. no n/v/f/c. having diarrhea afebrile, HD stable, leukocytosis resolved. pending stool cultures likely colitis no acute surgical intervention necessary f/u stool cultures will follow Jignesh Emerson Mar 16, 2017 12:25
--- NOTE | 2017-03-16 14:46 | General Progress Note ---
Assessment/Plan Status: stable, progressing Subjective Neurologic/Psychiatric: Reports: anxiety, depressed, emotional problems Allergies: Coded Allergies: KETOROLAC TROMETHAMINE (Unverified Allergy, Severe, Hives, 03/29/12) AMOXICILLIN (Verified Allergy, Unknown, 12/10/10) KETOROLAC (Verified Allergy, Unknown, 12/10/10) PENICILLINS (Verified Allergy, Unknown, 03/12/17) Pork (Verified Allergy, Unknown, 03/12/17) TRAMADOL (Verified Allergy, Unknown, 12/10/10) Objective Last 24 Hour Vital Signs Date Time Temp Pulse Resp B/P (MAP) Pulse Ox O2 Delivery O2 Flow Rate FiO2 03/16/17 13:18 97.7 03/16/17 09:31 74 133/95 03/16/17 04:00 97.7 74 18 133/95 97 Room Air 03/16/17 00:43 97.9 75 18 138/98 96 Room Air 03/15/17 20:00 96.9 87 20 159/112 98 Room Air 03/15/17 16:00 97.5 70 15 147/98 91 Laboratory Tests 03/16/17 07:45: White Blood Count 6.1, Red Blood Count 3.89L, Hemoglobin 11.7L, Hematocrit 35.3L , Mean Corpuscular Volume 91, Mean Corpuscular Hemoglobin 30.1, Mean Corpuscular Hemoglobin Concent 33.2, Red Cell Distribution Width 11.8, Platelet Count 205, Mean Platelet Volume 6.2L, Neutrophils (%) (Auto) 64.8, Lymphocytes ( %) (Auto) 23.9, Monocytes (%) (Auto) 7.8, Eosinophils (%) (Auto) 2.9, Basophils (%) (Auto) 0.6, Sodium Level 130L, Potassium Level 3.5, Chloride Level 96L, Carbon Dioxide Level 29, Anion Gap 5, Blood Urea Nitrogen 8, Creatinine 0.8, Estimat Glomerular Filtration Rate > 60, Glucose Level 204H, Calcium Level 9.7, Magnesium Level 1.6L, Vancomycin Level Trough 12.6H, Coccidioides Antibody ( Comp Fix) [Pending], Cryptococcus Antigen [Pending], Histoplasma Antigen [ Pending], HIV (1&2) Antibody Rapid Negative Height (Feet): 5 Height (Inches): 6.00 Weight (Pounds): 250 General Appearance: no apparent distress, alert, obese Neurologic: alert, oriented x 3, responsive, depressed affect Pavan Saldana M.D. Mar 16, 2017 14:46
--- NOTE | 2017-03-16 14:48 | GI Progress Note ---
Assessment/Plan Problems: (1) Electrolyte imbalance ICD Codes: E87.8 - Other disorders of electrolyte and fluid balance, not elsewhere classified SNOMED: 350041203 (2) Dehydration ICD Codes: E86.0 - Dehydration SNOMED: 33593030 (3) Abdominal pain ICD Codes: R10.9 - Unspecified abdominal pain SNOMED: 37379568 Qualifiers: Qualified Codes: R10.9 - Unspecified abdominal pain (4) Diabetes mellitus ICD Codes: E11.9 - Type 2 diabetes mellitus without complications SNOMED: 22077771 (5) Ileus ICD Codes: K56.7 - Ileus, unspecified SNOMED: 135505381 (6) Hx of cholecystectomy ICD Codes: Z90.49 - Acquired absence of other specified parts of digestive tract SNOMED: 76053159, 918634711 Status: stable Status Narrative Discussed with Dr. Kaur. Assessment/Plan CT AP reviewed >> mild enteritis/ilues flatus (+) ok for DC per GI standpoint DM management ADA diet bowel regime pain mgmt IV hydration + electrolyte replacement repeat imaging studies prn zofran prn, reglan for persistent vomiting PT/OT fu labs outpatient GI procedures Subjective Subjective abdominal pain constipation Objective Last 24 Hour Vital Signs Date Time Temp Pulse Resp B/P (MAP) Pulse Ox O2 Delivery O2 Flow Rate FiO2 03/16/17 13:18 97.7 03/16/17 09:31 74 133/95 03/16/17 04:00 97.7 74 18 133/95 97 Room Air 03/16/17 00:43 97.9 75 18 138/98 96 Room Air 03/15/17 20:00 96.9 87 20 159/112 98 Room Air 03/15/17 16:00 97.5 70 15 147/98 91 Laboratory Tests Test 03/16/17 07:45 White Blood Count 6.1 K/UL (4.8-10.8) Red Blood Count 3.89 M/UL (4.20-5.40) L Hemoglobin 11.7 G/DL (12.0-16.0) L Hematocrit 35.3 % (37.0-47.0) L Mean Corpuscular Volume 91 FL (80-99) Mean Corpuscular Hemoglobin 30.1 PG (27.0-31.0) Mean Corpuscular Hemoglobin Concent 33.2 G/DL (32.0-36.0) Red Cell Distribution Width 11.8 % (11.6-14.8) Platelet Count 205 K/UL (150-450) Mean Platelet Volume 6.2 FL (6.5-10.1) L Neutrophils (%) (Auto) 64.8 % (45.0-75.0) Lymphocytes (%) (Auto) 23.9 % (20.0-45.0) Monocytes (%) (Auto) 7.8 % (1.0-10.0) Eosinophils (%) (Auto) 2.9 % (0.0-3.0) Basophils (%) (Auto) 0.6 % (0.0-2.0) Sodium Level 130 MMOL/L (136-145) L Potassium Level 3.5 MMOL/L (3.5-5.1) Chloride Level 96 MMOL/L (98-107) L Carbon Dioxide Level 29 MMOL/L (21-32) Anion Gap 5 (5-15) Blood Urea Nitrogen 8 mg/dL (7-18) Creatinine 0.8 MG/DL (0.55-1.30) Estimat Glomerular Filtration Rate > 60 mL/min (>60) Glucose Level 204 MG/DL (74-106) H Calcium Level 9.7 MG/DL (8.5-10.1) Magnesium Level 1.6 MG/DL (1.8-2.4) L Vancomycin Level Trough 12.6 ug/mL (5.0-12.0) H Coccidioides Antibody (Comp Fix) Pending Cryptococcus Antigen Pending Histoplasma Antigen Pending HIV (1&2) Antibody Rapid Negative (NEGATIVE) Microbiology Date/Time Source Procedure Growth Status 03/16/17 00:10 Nasal Nares Influenza Types A,B Antigen (ABHI) - Final Complete Height (Feet): 5 Height (Inches): 6.00 Weight (Pounds): 250 General Appearance: no apparent distress, alert, obese Cardiovascular: normal rate Respiratory/Chest: normal breath sounds, no respiratory distress Abdominal Exam: normal bowel sounds, non tender, soft Extremities: normal range of motion Liz Chen N.P. Mar 16, 2017 14:48
[2017-03-16] MEDS ORDERED: D5 1/2NS 1000ml IV ONE ×2 (15:28)
[2017-03-16] MEDS ORDERED: Tubing IV Secondary IV ONE (15:28)
[2017-03-16] MEDS ORDERED: Vancomycin 1gm/D5W 275ml IVPB SCH ×2 (17:00)
--- NOTE | 2017-03-16 18:22 | Infectious Diseases Prog Note ---
Assessment/Plan Assessment/Plan Abx: IV Vanco 03/14- Levaquin 03/14- Aztreonam 03/14-03/15 Assesment: Abd pain/nausea- enteritis -? infectious vs non-infectious. no diarrhea -CT abd/p: Mild enteritis/ileus may be present. Postsurgical changes in the area of the cecum.Probable appendectomy. Status post cholecystectomy.Mild atherosclerotic disease Chronic disease at both lung bases as described above. Lumbar spondylosis as described above. Cough/hemoptysis- PNA- r/o fungal PNA (ie COcci). No epidemiological risk factors for TB, no TB exposure. CT chest: Bilateral patchy ill-defined mostly groundglass parenchymal opacities. Appearance nonspecific, most likely reflecting infectious/ inflammatory process. -Sp cx: normal kanika -f/u neg Afebrile, no leukocytosis uncontrolled DM2 PNC allergy (severe, anaphylaxis) cholecystectomy, HTN, hx of multiple bowel obstructions s/p multiple surgeries presents Plan: -For discharge today on PO levaquin (renally dosed) for 7 more days to complete a total of 10 days of tx for PNA. -f/u EKG for QTC -patient to f/u with PCP for pending serologies -f/u Cocci ab, Cr Ab serum, QTB, HIV ag/ab, Histoplasma ag urine -return precautions if persistent hemoptysis, worsening of symtpoms Thank you for this consultation. Discussed with RN and pulmonary team. Subjective Allergies: Coded Allergies: KETOROLAC TROMETHAMINE (Unverified Allergy, Severe, Hives, 03/29/12) AMOXICILLIN (Verified Allergy, Unknown, 12/10/10) KETOROLAC (Verified Allergy, Unknown, 12/10/10) PENICILLINS (Verified Allergy, Unknown, 03/12/17) Pork (Verified Allergy, Unknown, 03/12/17) TRAMADOL (Verified Allergy, Unknown, 12/10/10) Subjective afebrile at for discahsrge today Objective Vital Signs Last 24 Hour Vital Signs Date Time Temp Pulse Resp B/P (MAP) Pulse Ox O2 Delivery O2 Flow Rate FiO2 03/16/17 13:18 97.7 03/16/17 09:31 74 133/95 03/16/17 04:00 97.7 74 18 133/95 97 Room Air 03/16/17 00:43 97.9 75 18 138/98 96 Room Air 03/15/17 20:00 96.9 87 20 159/112 98 Room Air Height (Feet): 5 Height (Inches): 6.00 Weight (Pounds): 250 Objective not done as patient already discharged Microbiology Date/Time Source Procedure Growth Status 03/16/17 00:10 Nasal Nares Influenza Types A,B Antigen (ABHI) - Final Complete 03/14/17 17:20 Sputum Gram Stain - Final Resulted 03/14/17 17:20 Sputum Sputum Culture - Preliminary NORMAL UPPER RESPIRATORY KANIKA PRESENT Resulted Laboratory Tests Test 03/16/17 07:45 White Blood Count 6.1 K/UL (4.8-10.8) Red Blood Count 3.89 M/UL (4.20-5.40) L Hemoglobin 11.7 G/DL (12.0-16.0) L Hematocrit 35.3 % (37.0-47.0) L Mean Corpuscular Volume 91 FL (80-99) Mean Corpuscular Hemoglobin 30.1 PG (27.0-31.0) Mean Corpuscular Hemoglobin Concent 33.2 G/DL (32.0-36.0) Red Cell Distribution Width 11.8 % (11.6-14.8) Platelet Count 205 K/UL (150-450) Mean Platelet Volume 6.2 FL (6.5-10.1) L Neutrophils (%) (Auto) 64.8 % (45.0-75.0) Lymphocytes (%) (Auto) 23.9 % (20.0-45.0) Monocytes (%) (Auto) 7.8 % (1.0-10.0) Eosinophils (%) (Auto) 2.9 % (0.0-3.0) Basophils (%) (Auto) 0.6 % (0.0-2.0) Sodium Level 130 MMOL/L (136-145) L Potassium Level 3.5 MMOL/L (3.5-5.1) Chloride Level 96 MMOL/L (98-107) L Carbon Dioxide Level 29 MMOL/L (21-32) Anion Gap 5 (5-15) Blood Urea Nitrogen 8 mg/dL (7-18) Creatinine 0.8 MG/DL (0.55-1.30) Estimat Glomerular Filtration Rate > 60 mL/min (>60) Glucose Level 204 MG/DL (74-106) H Calcium Level 9.7 MG/DL (8.5-10.1) Magnesium Level 1.6 MG/DL (1.8-2.4) L Vancomycin Level Trough 12.6 ug/mL (5.0-12.0) H Coccidioides Antibody (Comp Fix) Pending Cryptococcus Antigen Pending Histoplasma Antigen Pending HIV (1&2) Antibody Rapid Negative (NEGATIVE) April Pagan M.D. Mar 16, 2017 18:22
--- NOTE | 2017-03-19 08:15 | Progress Note ---
SUBJECTIVE: The patient is doing better. Less anxious. better. Compliant with medication. No behavior issues. The patient is still complaining of pain. She has some nausea. Otherwise, much improved. MENTAL STATUS EXAMINATION: Alert and oriented times self, place, and situation she is in. Mood is dysphoric. Affect is constricted. Congruent with mood. Thought process is concrete. Thought content, no suicidal or homicidal ideations. ASSESSMENT: Depression. PLAN: 1. The patient will be continued on current medication. 2. Provide the patient with supportive therapy and reality orientation. We will continue to follow and readjust the medications. Pavan Saldana M.D. DR: CHRISTIAN JOB#: [id number] CC:
[2017-03-19 09:57] LABS: CRYPTOCOCCAL ANTIGEN SERUM Negative (Negative)
--- NOTE | 2017-03-19 16:34 | Discharge Summary ---
Discharge Summary Hospital Course Date of Admission Mar 12, 2017 at 15:10 Date of Discharge Mar 16, 2017 at 15:29 Admitting Diagnosis ABD PAIN HPI Demetris Trujillo is a 61 year old female who was admitted on Mar 12, 2017 at 15 :10 for Abdominal Pain Hospital Course dc summary #[id number] Discharge Medications New Medications: Levofloxacin* (Levaquin*) 500 Mg Tablet 500 MG ORAL DAILY, #8 TAB Continued Medications: Acetaminophen/Codeine 300MG/30MG* (Tylenol #3*) 1 Tab Tab 1 TAB PO Q4H PRN, #15 TAB Take 1 tablet by mouth every 4 hours as needed for pain. Amlodipine Besylate (Norvasc) 10 Mg Tablet 10 MG ORAL DAILY, TAB Metformin Hcl (Metformin Hcl) 1,000 Mg Tablet 1000 MG PO DAILY Discharge Discharge Disposition Patient was discharged to Home (01) Discharge Diagnoses: Darin (Alejandro)Susi NP Mar 19, 2017 16:34
--- NOTE | 2017-03-20 10:46 | Discharge Summary 2 SIG ---
DATE OF ADMISSION: 03/12/2017 DATE OF DISCHARGE: 03/16/2017 HISTORY OF PRESENT ILLNESS: 61-year-old morbidly obese female, with past medical history of hypertension and diabetes, presented to emergency room for evaluation secondary to abdominal pain for one week. She was seen in her primary medical doctor office and was referred for evaluation. The patient with a history of multiple bowel obstruction and multiple surgeries in the past. She denied fever or chills. Denied chest pain. Denied shortness of breath. The patient was afebrile. No leukocytosis. CT of the abdomen and pelvis revealed mild enteritis/ileus. Postsurgical changes in the area of cecum. Status post cholecystectomy. Chronic disease at both lungs. The patient was admitted for further management. HOSPITAL STAY: The patient was admitted to medical/surgical floor. The patient was initially kept NPO on the IV fluids. Surgery and GI evaluations were requested. Surgeon seen and evaluated the patient. Abdominal ultrasound ordered as well, which revealed a surgically absent gallbladder, mildly dilated common bile duct, likely related to age and post cholecystectomy, increasing hepatic echogenicity, probably fatty changes. Surgeon seen and evaluated both imaging and concluded that the patient likely had colitis, and possibly enteritis. The patient was afebrile and hemodynamically stable. Abdominal exam was stable. Laboratories were normal. There was no need for surgical intervention as per surgeon. GI closely followed as well. Per GI, the patient had mild enteritis. Bowel regimen was instituted. Pain management provided. The patient was initially on IV hydration. Electrolytes were replaced as needed. Replacement provided for low potassium and low magnesium. Antiemetic provided as needed. Diet was slowly reintroduced and advanced as tolerated. Antiemetic provided as needed. GI recommended outpatient GI procedure. The patient started to work with physical and occupational therapists. Venous duplex of bilateral lower extremities was negative, but incidental finding of Herrera cyst of left popliteal fossa was noted. Blood sugar was managed with sliding scale of insulin. Hemoglobin A1c -10.4, not at goal. The patient needs optimization of blood sugar regimen as outpatient and closely follow up with her PMD for tighter blood sugar control. Patient was counseled on diabetic diet. While in the hospital, Levemir was added to existing regimen of sliding scale of insulin, however, the patient did not want to have an insulin as an outpatient. The patient was placed back on metformin upon discharge, but was urged to follow up with the primary medical doctor for optimization of anti-glycemic regimen. Infectious Disease doctor seen the patient. CT of the chest was abnormal. It revealed bilateral patchy ill-defined, mostly ground-glass parenchymal opacities, most likely reflecting infectious/inflammatory process. The patient was on the empiric antibiotic as per Infectious Disease specialist. Serology for Cryptococcus was negative. Serology for cocci still pending. HIV test was negative. Sputum culture was negative. Influenza screen was negative. Infectious Disease specialist recommended to continue Levaquin as outpatient. Follow up with primary medical doctor and repeat CXR and CT chest after treatment. Psychiatrist seen and evaluated the patient and diagnosed the patient with depression. She recommended continue current medication regimen and provided the patient with supportive therapy and reality orientation. FINAL DIAGNOSES: 1. Abdominal pain 2. Likely enteritis, 3. Possible ileus. 4. Pneumonia. 5. Hemoptysis, resolved. 6. Dehydration, resolved. 7. Diabetes mellitus, out of control. 8. Electrolyte imbalances (hypokalemia and hypomagnesemia). 9. Depression. 10. Herrera cyst, left popliteal fossa. 11. Morbid obesity. DISCHARGE INSTRUCTIONS: The patient was discharged home. FOLLOWUP: Follow up with primary medical doctor. Recommended to follow up with CXR and repeat CT chest. Recommended outpatient GI procedure. DISCHARGE MEDICATIONS: See medication reconciliation list. Kalpana Torres M.D. Susi CalderonRichmond University Medical CenterLuciana N.PRafita DR: Krissy JOB#: [id number] CC: ALTAF
--- NOTE | 2017-03-27 08:35 | Cardiology Report ---
APPROVED REPORT EKG Measurement Heart [id number] Normal sinus rhythm Left axis deviation Moderate voltage criteria for LVH, may be normal variant Abnormal ECG
== END 2017-03-16 15:29 | disposition home or self-care (01) | DRG 388 ==
LOC: EDBD 14:13 → EMR 14:43 → 4E 15:10 → EDBEDREQ 15:21 → 4E 18:14
PROC: 02HV33Z Insertion of Infusion Device into Superior Vena Cava, Percutaneous Approach (ICD-10-PCS; principal; 2017-03-15)
DX: K56.7 Ileus, unspecified (principal); J18.9 Pneumonia, unspecified organism; E11.65 Type 2 diabetes mellitus with hyperglycemia; R04.2 Hemoptysis; Z68.41 Body mass index [BMI] 40.0-44.9, adult; K52.9 Noninfective gastroenteritis and colitis, unspecified; I25.10 Atherosclerotic heart disease of native coronary artery without angina pectoris; E86.0 Dehydration; E87.6 Hypokalemia; E83.42 Hypomagnesemia; F32.9 Major depressive disorder, single episode, unspecified; M71.22 Synovial cyst of popliteal space [Baker], left knee; E66.01 Morbid (severe) obesity due to excess calories; Z88.6 Allergy status to analgesic agent; Z88.1 Allergy status to other antibiotic agents; Z88.0 Allergy status to penicillin; Z88.8 Allergy status to other drugs, medicaments and biological substances; F41.9 Anxiety disorder, unspecified; Z91.81 History of falling; Z90.49 Acquired absence of other specified parts of digestive tract
CPT/HCPCS: 36415; 36569; 71250; 74177; 76700; 76937; 80048; 80053; 80202; 81003; 82150; 82962; 83036; 83690; 83735; 84100; 85025; 85610; 85730; 86635; 86703; 86710; 87070; 87205; 87385; 87449; 93005; 93970; 94664; 99285; J1815; J2405; J2765; S5561

== ENCOUNTER 2017-10-13 22:11 | Emergency (ER) | payer MEDICARE, OTHER ==
[~2017-10-13] VITALS: Ht 165.1 cm; Wt 112.9 kg
[~2017-10-13 22:11] MED LIST changes: +LEVAQUIN500 MG ORAL; +NORVASC10 MG ORAL; +SOMA350 MG PO
[2017-10-13] MEDS ORDERED: Morphine Sulfate 4mg/ml Inj IVP ONE (22:45)
--- NOTE | 2017-10-13 23:00 | Emergency Room Report ---
History of Present Illness General Chief Complaint: Abdominal Pain Source: Patient, Medical Record Present Illness HPI This is a 61-year-old female with a history of chronic abdominal pain. She had previous laparotomy with obstruction. Patient present with left lower quadrant abdominal pain for the last to 3 days which she has vomiting. Also said she passed a lot of gas. Has dysuria and frequency. Also with urgency. Pain is 9 out of 10. Medicine at home is not helping. Denies any other complaint. Pain radiated to her left upper back. Allergies: Coded Allergies: KETOROLAC TROMETHAMINE (Unverified Allergy, Severe, Hives, 03/29/12) AMOXICILLIN (Verified Allergy, Unknown, 12/10/10) KETOROLAC (Verified Allergy, Unknown, 12/10/10) PENICILLINS (Verified Allergy, Unknown, 03/12/17) Pork (Verified Allergy, Unknown, 03/12/17) TRAMADOL (Verified Allergy, Unknown, 12/10/10) Patient History Past Medical History: see triage record, old chart reviewed Past Surgical History: other Pertinent Family History: none Social History: Denies: smoking Now: No Immunizations: other Reviewed Nursing Documentation: PMH: Agreed; PSxH: Agreed Nursing Documentation-PMH Hx Cardiac Problems: Yes Hx Hypertension: Yes Hx Diabetes: Yes Hx Cancer: No Hx Gastrointestinal Problems: Yes Hx Neurological Problems: No Review of Systems Eye: Denies: eye pain, blurred vision ENT: Denies: ear pain, nose congestion, throat swelling Respiratory: Denies: cough, shortness of breath Cardiovascular: Denies: chest pain, palpitations Gastrointestinal: Reports: abdominal pain, nausea, vomiting; Denies: diarrhea Genitourinary: Reports: dysuria, frequency, urgency Musculoskeletal: Denies: back pain, joint pain Skin: Denies: rash Neurological: Denies: headache, numbness Endocrine: Denies: increased thirst, increased urine Hematologic/Lymphatic: Denies: easy bruising All Other Systems: negative except mentioned in HPI Physical Exam Vital Signs Date Time Temp Pulse Resp B/P (MAP) Pulse Ox O2 Delivery O2 Flow Rate FiO2 10/13/17 22:17 98.5 77 18 144/82 99 Room Air 98.4 vitals normal Sp02 EP Interpretation: reviewed, normal General Appearance: well appearing, no apparent distress, alert, obese Head: normocephalic, atraumatic Eyes: bilateral eye PERRL, bilateral eye EOMI ENT: hearing grossly normal, normal pharynx Neck: full range of motion, supple, no meningismus Respiratory: chest non-tender, lungs clear, normal breath sounds Cardiovascular #1: regular rate, rhythm, no murmur Gastrointestinal: normal bowel sounds, no mass, no organomegaly, no bruit, non- distended, tenderness - diffuse left sided Musculoskeletal: back normal, gait/station normal, normal range of motion Neurologic: alert, oriented x3 Psychiatric: mood/affect normal Skin: warm/dry Medical Decision Making Diagnostic Impression: Primary Impression: Abdominal pain Qualified Codes: R10.84 - Generalized abdominal pain Additional Impressions: UTI (urinary tract infection) Qualified Codes: N30.00 - Acute cystitis without hematuria Morbid obesity with BMI of 40.0-44.9, adult ER Course Patient with exacerbation of chronic abdominal pain. No obstruction. No acute abdomen. She does have a urinary tract infection. Antibiotic started. We'll discharge home. Lab Results Impression labs at baseline CT/MRI/US Diagnostic Results CT/MRI/US Diagnostic Results : Imaging Test Ordered: CT abdomen and pelvis Impression read by radiologist. No obstruction. Last Vital Signs Date Time Temp Pulse Resp B/P (MAP) Pulse Ox O2 Delivery O2 Flow Rate FiO2 10/13/17 22:17 98.5 77 18 144/82 99 Room Air 98.4 Status: improved Disposition: HOME, SELF-CARE Condition: Stable Scripts Nitrofurantoin Monohyd/M-Cryst (Nitrofurantoin Wallace-Mcr 100 mg) 100 Mg Capsule 100 MG ORAL Q12H, #14 CAP Prov: ARABELLA BARTLETT M.D. 10/14/17 Hydrocodone/Acetaminophen 5-325* (HYDROCODONE/ACETAMINOPHEN 5-325*) 1 Each Tablet 1 TAB ORAL Q6H PRN for For Pain, #15 TAB 0 Refills Prov: ARABELLA BARTLETT M.D. 10/14/17 Patient Instructions: Abdominal Pain, Adult Additional Instructions: Follow-up with your DrRafita in 2-3 days. Return of worse. ARABELLA BARTLETT M.D. October 13, 2017 23:00
[2017-10-13 23:01] LABS: BASOPHILS % (AUTO) 0.6 % (0.0-2.0); EOSINOPHILS % (AUTO) 1.8 % (0.0-3.0); HEMATOCRIT 40.5 % (37.0-47.0); HEMOGLOBIN 13.8 G/DL (12.0-16.0); LYMPHOCYTES % (AUTO) 26.9 % (20.0-45.0); MEAN CORPUSCULAR VOLUME 86 FL (80-99); MONOCYTES % (AUTO) 5.2 % (1.0-10.0); NEUTROPHILS % (AUTO) 65.5 % (45.0-75.0); PLATELET COUNT 275 K/UL (150-450); RED BLOOD COUNT 4.69 M/UL (4.20-5.40); RED CELL DISTRIBUTION WIDTH 11.9 % (11.6-14.8); WHITE BLOOD COUNT 8.5 K/UL (4.8-10.8)
[2017-10-13 23:02] LABS: APPEARANCE,URINE CLOUDY; BILIRUBIN, URINE 1+ (NEGATIVE); GLUCOSE, URINE (UA) NEGATIVE (NEGATIVE); KETONES,URINE 1+ (NEGATIVE); LEUKOCYTE ESTERASE ,URINE 1+ (NEGATIVE); NITRITE,URINE NEGATIVE (NEGATIVE); PH,URINE 5 (4.5-8.0); PROTEIN,URINE 3+ (NEGATIVE); UROBILINOGEN,URINE 4 MG/DL (0.0-1.0)
[2017-10-13 23:08] LABS: COLOR,URINE YELLOW
[2017-10-13 23:09] VITALS: BP 144/82
[2017-10-13 23:14] LABS: ANION GAP 13 mmol/L (5-15); BLOOD UREA NITROGEN 28 mg/dL (7-18); CALCIUM 10.4 MG/DL (8.5-10.1); CARBON DIOXIDE 27 MMOL/L (21-32); CHLORIDE 100 MMOL/L (98-107); CREATININE 1.7 MG/DL (0.55-1.30); POTASSIUM 3.7 MMOL/L (3.5-5.1); SODIUM 140 MMOL/L (136-145)
[2017-10-13 23:20] LABS: ALANINE AMINOTRANSFERASE 19 U/L (12-78); ALBUMIN 3.9 G/DL (3.4-5.0); ALBUMIN/GLOBULIN RATIO 0.8 (1.0-2.7); ALKALINE PHOSPHATASE 137 U/L (46-116); ASPARTATE AMINO TRANSFERASE 16 U/L (15-37); BILIRUBIN,TOTAL 0.3 MG/DL (0.2-1.0)
[2017-10-13] MEDS ORDERED: cefTRIAXone 1 GM in NS 55 ML IVPB ONE (23:30)
--- NOTE | 2017-10-13 23:50 | Diagnostic Imaging Report ---
EXAM: CT Abdomen and Pelvis Without Intravenous Contrast CLINICAL HISTORY: ABSCESS TECHNIQUE: Axial computed tomography images of the abdomen and pelvis without intravenous contrast. CTDI is 19 mGy and DLP is 1021 mGy-cm. One or more of the following dose reduction techniques were used: automated exposure control, adjustment of the mA and/or kV according to patient size, use of iterative reconstruction technique. COMPARISON: No relevant prior studies available. FINDINGS: Lung bases: Right basilar atelectasis. Nonspecific 1 cm opacity at the right lung base may also represent atelectasis. ABDOMEN: Liver: Unremarkable. Gallbladder and bile ducts: Cholecystectomy. No ductal dilation. Pancreas: Unremarkable. No ductal dilation. Spleen: Unremarkable. No splenomegaly. Adrenals: Unremarkable. No mass. Kidneys and ureters: Unremarkable. No obstructing stones. No hydronephrosis. Stomach and bowel: Right lower quadrant bowel anastomosis with a fluid level but no other suspicious findings. No obstruction. No mucosal thickening. PELVIS: Appendix: No findings to suggest acute appendicitis. Bladder: Unremarkable. No stones. Reproductive: Unremarkable as visualized. ABDOMEN and PELVIS: Intraperitoneal space: Unremarkable. No free air. No significant fluid collection. Bones/joints: No acute fracture. No dislocation. Soft tissues: Unremarkable. Vasculature: Unremarkable. No abdominal aortic aneurysm. Lymph nodes: Unremarkable. No enlarged lymph nodes. IMPRESSION: 1. Right basilar atelectasis. Nonspecific 1 cm opacity at the right lung base may also represent atelectasis. Small infiltrate cannot be excluded. 2. No definite fluid collection is seen. Evaluation limited without contrast.
[2017-10-14] MEDS ORDERED: HYDROCODON-ACE1 EA15 ORAL (00:20)
[2017-10-14] MEDS ORDERED: MACROBID100 MG ORAL (00:20)
[2017-10-14 00:40] VITALS: BP 140/81
== END 2017-10-14 00:40 | disposition home or self-care (01) ==
LOC: EMR 23:30
DX: R10.9 Unspecified abdominal pain (principal); N39.0 Urinary tract infection, site not specified; E66.01 Morbid (severe) obesity due to excess calories; Z68.41 Body mass index [BMI] 40.0-44.9, adult; I10 Essential (primary) hypertension; E11.9 Type 2 diabetes mellitus without complications
CPT/HCPCS: 36415; 74176; 80053; 81003; 83690; 85025; 87086; 96374; 96375; 99284; J2270; J2405

== ENCOUNTER 2017-11-10 21:03 | Emergency (ER) | payer MEDICARE, OTHER ==
[~2017-11-10] VITALS: Ht 165.1 cm; Wt 104.3 kg
[~2017-11-10 21:03] MED LIST changes: +HYDROCODON-ACE1 EA15 ORAL; +MACROBID100 MG ORAL
[2017-11-10] MEDS ORDERED: LISINOPRIL5 MG ORAL (21:14)
[2017-11-10] MEDS ORDERED: SYMLIN600 MCG/1 SUBQ (21:14)
[2017-11-10 21:15] VITALS: BP 160/85
[2017-11-10] MEDS ORDERED: Morphine Sulfate 10mg/ml Inj IM ONE (21:15)
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
--- NOTE | 2017-11-10 22:23 | Diagnostic Imaging Report ---
EXAM: XR Left Hand Complete, 3 or More Views CLINICAL HISTORY: PAIN TECHNIQUE: Frontal, lateral and oblique views of the left hand. COMPARISON: No relevant prior studies available. FINDINGS: Bones/joints: No acute or suspicious findings. No acute fracture. No dislocation. Soft tissues: No acute or suspicious findings. No radiopaque foreign body. IMPRESSION: Normal left hand x-rays.
--- NOTE | 2017-11-10 22:24 | Diagnostic Imaging Report ---
EXAM: XR Right Knee, 3 views CLINICAL HISTORY: PAIN TECHNIQUE: Three views of the right knee. COMPARISON: No relevant prior studies available. FINDINGS: Bones/joints: Hardware at the distal femur is intact. No acute fracture. No dislocation. Soft tissues: No acute or suspicious findings. IMPRESSION: No acute findings.
--- NOTE | 2017-11-10 22:25 | Diagnostic Imaging Report ---
EXAM: XR Right Foot Complete, 3 or More Views CLINICAL HISTORY: PAIN TECHNIQUE: Frontal, lateral and oblique views of the right foot. COMPARISON: No relevant prior studies available. FINDINGS: Bones/joints: No acute or suspicious findings. No acute fracture. No dislocation. Soft tissues: No acute or suspicious findings. No radiopaque foreign body. IMPRESSION: Normal right foot x-rays.
--- NOTE | 2017-11-10 22:25 | Diagnostic Imaging Report ---
EXAM: XR Right Ankle Complete, 3 or More Views CLINICAL HISTORY: PAIN TECHNIQUE: Frontal, lateral and oblique views of the right ankle. COMPARISON: No relevant prior studies available. FINDINGS: Bones/joints: Hardware at the tibia and fibula intact and in place. No acute fracture. No dislocation. Soft tissues: No acute or suspicious findings. IMPRESSION: No acute findings.
[2017-11-10 23:07] LABS: BILIRUBIN, URINE NEGATIVE (NEGATIVE); COLOR,URINE PALE YELLOW; GLUCOSE, URINE (UA) NEGATIVE (NEGATIVE); KETONES,URINE NEGATIVE (NEGATIVE); LEUKOCYTE ESTERASE ,URINE NEGATIVE (NEGATIVE); NITRITE,URINE NEGATIVE (NEGATIVE); PH,URINE 7 (4.5-8.0); PROTEIN,URINE NEGATIVE (NEGATIVE); UROBILINOGEN,URINE NORMAL MG/DL (0.0-1.0)
[2017-11-10 23:08] LABS: APPEARANCE,URINE CLEAR
[2017-11-10 23:15] VITALS: BP 152/81
[2017-11-10] MEDS ORDERED: ACETAMINOPHEN-1 EAC1 ORAL (23:23)
[2017-11-11] VITALS: BP 160/85
== END 2017-11-11 | disposition home or self-care (01) ==
LOC: EDBD 21:03 → EMR 22:00
DX: S60.222A Contusion of left hand, initial encounter (principal); S93.401A Sprain of unspecified ligament of right ankle, initial encounter; M25.561 Pain in right knee; E11.9 Type 2 diabetes mellitus without complications; I10 Essential (primary) hypertension; Z88.6 Allergy status to analgesic agent; Z88.1 Allergy status to other antibiotic agents; Z88.0 Allergy status to penicillin; Z91.018 Allergy to other foods; W51.XXXA Accidental striking against or bumped into by another person, initial encounter; Y92.811 Bus as the place of occurrence of the external cause
CPT/HCPCS: 73130; 73562; 73610; 73630; 81003; 96372; 99284; J2270

== ENCOUNTER 2017-11-20 10:20 | Emergency (ER) | payer MEDICARE, OTHER ==
[~2017-11-20] VITALS: Ht 165.1 cm; Wt 108.9 kg
[~2017-11-20 10:20] MED LIST changes: +ACETAMINOPHEN-1 EAC1 ORAL; +LISINOPRIL5 MG ORAL; +SYMLIN600 MCG/1 SUBQ
[2017-11-20] MEDS ORDERED: BACLOFEN10 MG ORAL (10:28)
[2017-11-20] MEDS ORDERED: GABAPENTIN300 MG ORAL (10:28)
[2017-11-20] MEDS ORDERED: Cyclobenzaprine 10mg Tab ORAL ONE (10:45)
[2017-11-20 11:06] LABS: APPEARANCE,URINE CLOUDY; BILIRUBIN, URINE NEGATIVE (NEGATIVE); GLUCOSE, URINE (UA) NEGATIVE (NEGATIVE); KETONES,URINE NEGATIVE (NEGATIVE); LEUKOCYTE ESTERASE ,URINE 1+ (NEGATIVE); NITRITE,URINE NEGATIVE (NEGATIVE); PH,URINE 6 (4.5-8.0); PROTEIN,URINE 1+ (NEGATIVE); UROBILINOGEN,URINE NORMAL MG/DL (0.0-1.0)
[2017-11-20 11:08] LABS: COLOR,URINE YELLOW
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
[2017-11-20] MEDS ORDERED: NITROFURANTOIN100 M2 ORAL (11:25)
[2017-11-20] MEDS ORDERED: DICYCLOMINE HCL20 M1 PO (11:25)
[2017-11-20 12:41] VITALS: BP 173/72
--- NOTE | 2017-11-20 15:03 | Diagnostic Imaging Report ---
Indication: Abdominal pain Technique: Supine view of the abdomen Comparison: 03/17/2007 Findings: Unremarkable bowel gas pattern. No unusual masses or calcifications. No significant change Impression: No acute process
== END 2017-11-20 12:43 | disposition home or self-care (01) ==
LOC: EMR 10:50
DX: N39.0 Urinary tract infection, site not specified (principal); I10 Essential (primary) hypertension; E11.9 Type 2 diabetes mellitus without complications; Z88.0 Allergy status to penicillin; Z88.8 Allergy status to other drugs, medicaments and biological substances
CPT/HCPCS: 74018; 81003; 99284

== ENCOUNTER 2017-11-27 21:30 | Emergency (ER) | payer MEDICARE, OTHER ==
[~2017-11-27] VITALS: Ht 165.1 cm; Wt 117.9 kg
[~2017-11-27 21:30] MED LIST changes: +BACLOFEN10 MG ORAL; +DICYCLOMINE HCL20 M1 PO; +GABAPENTIN300 MG ORAL; +NITROFURANTOIN100 M2 ORAL
[2017-11-27] MEDS ORDERED: Tylenol #3 tab (300mg/30mg) ORAL ONE (21:45)
[2017-11-27 22:05] VITALS: BP 155/84
[2017-11-27] MEDS ORDERED: ACETAMINOPHEN500 M3 ORAL (22:10)
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
--- NOTE | 2017-11-28 10:42 | Diagnostic Imaging Report ---
Indication: Pain Findings: 2 views of the left femur were obtained. No acute fractures, malalignment, erosions or periostitis are identified. Soft tissues are unremarkable. Impression: Negative examination of the femur
== END 2017-11-27 22:15 | disposition home or self-care (01) ==
LOC: EDBD 21:30 → EMR 21:45
DX: S70.12XA Contusion of left thigh, initial encounter (principal); W01.0XXA Fall on same level from slipping, tripping and stumbling without subsequent striking against object, initial encounter; Y92.811 Bus as the place of occurrence of the external cause; I10 Essential (primary) hypertension; E11.9 Type 2 diabetes mellitus without complications; Z88.0 Allergy status to penicillin; Z88.8 Allergy status to other drugs, medicaments and biological substances; Z88.6 Allergy status to analgesic agent; E66.01 Morbid (severe) obesity due to excess calories; Z68.41 Body mass index [BMI] 40.0-44.9, adult
CPT/HCPCS: 99283

== ENCOUNTER 2017-12-20 14:17 | Emergency (ER) | payer MEDICARE, OTHER ==
[~2017-12-20] VITALS: Ht 162.6 cm; Wt 81.6 kg
[~2017-12-20 14:17] MED LIST changes: +ACETAMINOPHEN500 M3 ORAL
[2017-12-20] MEDS ORDERED: Dicyclomine HCl 10mg/5ml oral soln ORAL ONE (14:30)
[2017-12-20] MEDS ORDERED: Lidocaine 2% Visc 15ml soln ORAL ONE (14:30)
[2017-12-20] MEDS ORDERED: Mylanta II UD 30ml ORAL ONE (14:30)
--- NOTE | 2017-12-20 14:32 | Emergency Room Report ---
History of Present Illness General Chief Complaint: Abdominal Pain Source: Patient Present Illness HPI Patient presents with right-sided abdominal pain Reports of the pain starts in the flank area has some radiation to the lower abdomen Patient also reports that she had a'popping'sensation in that area Denies any chest pain or shortness of breath She had some mild discomfort with urination also reports seeing possible blood Denies any constipation denies any recent travel Patient has had multiple falls and trauma over the past one month Allergies: Coded Allergies: KETOROLAC TROMETHAMINE (Unverified Allergy, Severe, Hives, 03/29/12) AMOXICILLIN (Verified Allergy, Unknown, 12/10/10) KETOROLAC (Verified Allergy, Unknown, 12/10/10) PENICILLINS (Verified Allergy, Unknown, 03/12/17) Pork (Verified Allergy, Unknown, 03/12/17) TRAMADOL (Verified Allergy, Unknown, 12/10/10) Patient History Past Medical History: see triage record Pertinent Family History: none Reviewed Nursing Documentation: PMH: Agreed; PSxH: Agreed Nursing Documentation-PMH Past Medical History: No History, Except For Hx Cardiac Problems: Yes Hx Hypertension: Yes Hx Diabetes: Yes Hx Cancer: No Review of Systems All Other Systems: negative except mentioned in HPI Physical Exam Vital Signs Date Time Temp Pulse Resp B/P (MAP) Pulse Ox O2 Delivery O2 Flow Rate FiO2 12/20/17 13:58 97.5 74 16 160/96 98 Room Air 97.5 Sp02 EP Interpretation: reviewed, normal General Appearance: mild distress - Presents somewhat histrionic, however more appropriate during history Head: normocephalic, atraumatic Eyes: bilateral eye PERRL, bilateral eye EOMI ENT: normal pharynx, no angioedema Neck: supple Respiratory: lungs clear, normal breath sounds Cardiovascular #1: regular rate, rhythm, no edema Gastrointestinal: non tender - On palpation however patient subjectively points to the right upper mid abdomen for the discomfort Musculoskeletal: normal inspection Neurologic: alert, oriented x3, responsive Skin: normal color, no rash Lymphatic: no adenopathy Medical Decision Making Diagnostic Impression: Primary Impression: Abdominal pain ER Course With the history exam and presentation, multiple differentials considered, including but not limited to appendicitis, gastritis, cholecystitis, diverticulitis Patient's CT imaging did not show any acute pathology Chemistry is also within normal limits Urine showed very small amount of blood Patient at this time has done well Resting comfortably Patient requesting pain medication upon discharge And I did discuss with her that 3-4 different providers have written for opiate medication And at this time unfortunately it is inappropriate to provide further opiates through the ER Patient will have close outpatient follow with primary Labs Test 12/20/17 14:55 12/20/17 16:30 Urine Color Yellow Urine Appearance Clear Urine pH 5 (4.5-8.0) Urine Specific [place] 1.020 (1.005-1.035) Urine Protein 1+ (NEGATIVE) Urine Glucose (UA) 1+ (NEGATIVE) Urine Ketones Negative (NEGATIVE) Urine Occult Blood 1+ (NEGATIVE) Urine Nitrite Negative (NEGATIVE) Urine Bilirubin Negative (NEGATIVE) Urine Urobilinogen Normal MG/DL (0.0-1.0) Urine Leukocyte Esterase Negative (NEGATIVE) Urine RBC 2-4 /HPF (0 - 2) Urine WBC 0-2 /HPF (0 - 2) Urine Squamous Epithelial Cells Few /LPF (NONE/OCC) Urine Bacteria Occasional /HPF (NONE) Sodium Level 139 MMOL/L (136-145) Potassium Level 4.4 MMOL/L (3.5-5.1) Chloride Level 106 MMOL/L (98-107) Carbon Dioxide Level 25 MMOL/L (21-32) Anion Gap 8 mmol/L (5-15) Blood Urea Nitrogen 15 mg/dL (7-18) Creatinine 0.9 MG/DL (0.55-1.30) Estimat Glomerular Filtration Rate > 60 mL/min (>60) Glucose Level 193 MG/DL (74-106) Calcium Level 9.6 MG/DL (8.5-10.1) Total Bilirubin 0.2 MG/DL (0.2-1.0) Aspartate Amino Transf (AST/SGOT) 19 U/L (15-37) Alanine Aminotransferase (ALT/SGPT) 17 U/L (12-78) Alkaline Phosphatase 101 U/L (46-116) Total Protein 7.3 G/DL (6.4-8.2) Albumin 3.6 G/DL (3.4-5.0) Globulin 3.7 g/dL Albumin/Globulin Ratio 1.0 (1.0-2.7) CT/MRI/US Diagnostic Results CT/MRI/US Diagnostic Results : Impression CT abdomen pelvisImpression: Limited assessment of the GI tract due to lack of enteric contrast administration. No definite acute abnormality Evidence of prior right hemicolectomy Bilateral basilar pulmonary parenchymal scarring, unchanged Previously demonstrated right lateral peripheral pulmonary opacity is no longer evident Last Vital Signs Date Time Temp Pulse Resp B/P (MAP) Pulse Ox O2 Delivery O2 Flow Rate FiO2 12/20/17 13:58 97.5 74 16 160/96 98 Room Air 97.5 Status: improved Disposition: HOME, SELF-CARE Condition: Improved Additional Instructions: Patient is provided with the discharge instructions notified to follow up with primary doctor in the next 2-3 days otherwise return to the er with any worsening symptoms. Please note that this report is being documented using [employer] technology. This can lead to erroneous entry secondary to incorrect interpretation by the dictating instrument. Derian Shin DO Dec 20, 2017 14:32
[2017-12-20 15:15] LABS: APPEARANCE,URINE CLEAR; BILIRUBIN, URINE NEGATIVE (NEGATIVE); GLUCOSE, URINE (UA) 1+ (NEGATIVE); KETONES,URINE NEGATIVE (NEGATIVE); LEUKOCYTE ESTERASE ,URINE NEGATIVE (NEGATIVE); NITRITE,URINE NEGATIVE (NEGATIVE); PH,URINE 5 (4.5-8.0); PROTEIN,URINE 1+ (NEGATIVE); UROBILINOGEN,URINE NORMAL MG/DL (0.0-1.0)
[2017-12-20 15:20] LABS: COLOR,URINE YELLOW
[2017-12-20 15:30] VITALS: BP 154/82
--- NOTE | 2017-12-20 16:31 | Diagnostic Imaging Report ---
Indication: Right-sided abdominal pain Technique: Spiral acquisitions obtained through the abdomen and pelvis. No oral contrast utilized, per emergency room physician request No IV contrast utilized, per referring physician request.. Multiplanar reconstructions were generated. Total dose length product 1329.13 mGycm. CTDIvol(s) 26.2 mGy. Dose reduction achieved using automated exposure control Comparison: 10/13/2017 Findings: Lack of enteric contrast limits assessment of the GI tract. Again demonstrated is evidence of prior right hemicolectomy and ileocolic anastomosis. No evidence of diverticulosis or diverticulitis. No small bowel distention. No free or loculated intraperitoneal air or fluid is evident. Distal esophagus, stomach, duodenum are unremarkable. Lack of IV contrast limits assessment of the solid organs The gallbladder is surgically absent. The liver, bile ducts, pancreas, spleen, adrenals, kidneys are all unremarkable. No pelvic mass or adenopathy. No retroperitoneal or mesenteric mass or adenopathy. The included lung bases demonstrate some scarring bilaterally which appears similar to the previous study. Previously demonstrated right lateral peripheral opacity is no longer evident. The bones demonstrate degenerative spondylosis changes. Impression: Limited assessment of the GI tract due to lack of enteric contrast administration. No definite acute abnormality Evidence of prior right hemicolectomy Bilateral basilar pulmonary parenchymal scarring, unchanged Previously demonstrated right lateral peripheral pulmonary opacity is no longer evident The CT scanner at [facility] is accredited by the [employer] and the scans are performed using protocols designed to limit radiation exposure to as low as reasonably achievable to attain images of sufficient resolution adequate for diagnostic evaluation.
[2017-12-20 17:33] LABS: ANION GAP 8 mmol/L (5-15); BLOOD UREA NITROGEN 15 mg/dL (7-18); CALCIUM 9.6 MG/DL (8.5-10.1); CARBON DIOXIDE 25 MMOL/L (21-32); CHLORIDE 106 MMOL/L (98-107); CREATININE 0.9 MG/DL (0.55-1.30); POTASSIUM 4.4 MMOL/L (3.5-5.1); SODIUM 139 MMOL/L (136-145)
[2017-12-20 17:45] LABS: ALANINE AMINOTRANSFERASE 17 U/L (12-78); ALBUMIN 3.6 G/DL (3.4-5.0); ALKALINE PHOSPHATASE 101 U/L (46-116); ASPARTATE AMINO TRANSFERASE 19 U/L (15-37); BILIRUBIN,TOTAL 0.2 MG/DL (0.2-1.0)
[2017-12-20 17:59] VITALS: BP 145/82
[2017-12-20 18:00] VITALS: BP 145/82
== END 2017-12-20 18:00 | disposition home or self-care (01) ==
LOC: EDBD 14:17 → EMR 14:48
DX: R10.9 Unspecified abdominal pain (principal); I10 Essential (primary) hypertension; E11.9 Type 2 diabetes mellitus without complications; Z90.49 Acquired absence of other specified parts of digestive tract; Z88.0 Allergy status to penicillin; Z88.8 Allergy status to other drugs, medicaments and biological substances
CPT/HCPCS: 36415; 74176; 80053; 81003; 99284